=== PATIENT | female | born 1955 | race Two or more races ===

== ENCOUNTER 2023-04-18 09:49 | Outpatient (AMB) | payer MEDICARE, MEDICAID, SELFPAY ==
--- NOTE | 2023-04-18 09:54 | A.OFFVIS_ITS ---
Intake Vital Signs 04/18/23 09:57 Height 5 ft 2 in Weight 156 lb 8.451 oz BMI 28.6 BP 147/67 H Blood Pressure Location Lt brachial Position Sitting Pulse 79 Intake Visit Reasons: Cirrhosis Intake Note: Evita presents in the office as a new patient for Cirrhosis. CC: She was told that she has cirrhosis in her liver. She wants to know what is going on moving forward. Agency Development Manager Required: Yes Agency Development Manager Name: Daughter Allergies No Known Allergies Allergy (Verified 04/18/23 09:57) HPI HPI Comments History of Present Illness Details 67 y.o F with PMH of etOH use, HTN and hypothyroidism who is here to discuss GI issues as below. Accompanied by her daughter. Encounter complted with the help of filler picker. Reason for referral is a bit unclear as PCP's note mentions that she is due for colon cancer screening however pt's daughter reports she had an upper endoscopy and colonoscopy just last year from [place]. They tell me they had given a copy of the report to their PCP. Daughter also reports possible cirrhosis vs fatty liver. Daughter reports that a few years ago she had an admission to [facility] for heavy epistaxis and at that time she was told she may have cirrhosis. However when she saw her managed care specialist in [place] last year, she was told she had fatty liver without cirrhosis. However ?? she was also given Nadolol by that same provider. They are also not sure if she ever had ascites - at some point she had swollen belly and was started on lasix but that was stopped within a few weeks. Pt does have previous hx of etOH use disorder - started drinking heavily after h er in 1988. Was drinking 12 pack of beer every day x 15 years and then decreased 6 beers per day. She completely quit drinking almost 4 years ago when she had the admission to [facility]. [facility] Surgical History (Updated 04/18/23 @ 09:58 by STEFFANIE Valentin) History of esophagogastroduodenoscopy (EGD) Hx of colonoscopy Social History (Updated 04/18/23 @ 09:58 by STEFFANIE Valentin) Household Members: Family Alcohol intake: never Patient Tobacco Use Status: Never used Tobacco Review of Systems Const All systems reviewed & are unremarkable except as noted in HPI and below Physical Exam Vital Signs: Last Vital Signs Pulse 79 04/18/23 09:57 BP 147/67 H 04/18/23 09:57 BMI result Body Mass Index 28.6 Gen Appear: NAD, well nourished HEENT: No scleral icterus, no bitemporal wasting noted Chest: CTA CVS: Regular S1/S2 no murmurs Abd: soft, nontender, nondistended, no shifting dullness to percussion, bowel sounds active Ext: No peripheral edema bilaterally Neuro: A/Ox3, no asterixis Derm: No spider angioma and palmar erythema noted Assessment & Plan Assessment & Plan (1) Chronic liver disease: Code(s): K76.9 - Liver disease, unspecified (2) Personal history of colonic polyps: Code(s): Z86.010 - Personal history of colonic polyps Plan 1. Discussed with the pt and her daughter that based on physical exam, no stigmata of advanced liver disease however will need more information to determine this further. Suspect pt may have had CSPH due to ongoing etOH use at some point which has now recovered in the light of complete abstinence. - Labs ordered as below - Records release from [facility] signed - US abd ordered, however pt reports having a ?liver MRI at [facility] 2 months ago - again, will await records and cancel ultrasound if not needed. 2. Pt will bring reports from her EGD and colo later this week. Depending on the results, will review interval for next endoscopy. Orders: Orders Comprehensive Met. Panel Today K76.9 - Liver disease, unspecified Ferritin Today K76.9 - Liver disease, unspecified IRON PROFILE Today K76.9 - Liver disease, unspecified Prothrombin Time INR Today K76.9 - Liver disease, unspecified Complete Blood Count no Diff Today K76.9 - Liver disease, unspecified Hepatitis B Surface Antibody Today K76.9 - Liver disease, unspecified Hepatitis A IgG Today K76.9 - Liver disease, unspecified Hepatitis B Core Antibody Today K76.9 - Liver disease, unspecified Hepatitis B Surface Antigen Today K76.9 - Liver disease, unspecified Hepatitis C Antibody Today K76.9 - Liver disease, unspecified HIV Ab/Ag Today K76.9 - Liver disease, unspecified US abdomen complete Today K76.9 - Liver disease, unspecified Coding Level of Care Code New Pt Level 4 (31626) Diagnoses Chronic liver disease K76.9 Personal history of colonic polyps Z86.010
[2023-04-18 09:57] VITALS: BP 147/67; PULSE 79; BMI 28.6
== END 2023-04-18 10:37 | disposition home or self-care (01) ==
PROVIDERS: PCP Internal Medicine; Visit Provider Internal Medicine
DX: K76.9 Liver disease, unspecified (principal); Z86.010 Personal history of colon polyps
CPT/HCPCS: 99204

== ENCOUNTER 2023-04-18 09:49 | Outpatient (REF) | payer MEDICARE, MEDICAID, SELFPAY ==
[2023-04-18 11:56] LABS: Hematocrit 42.5 % (37.0-47.0); Mean Corpuscular HGB Conc 32.9 g/dl (31.0-35.0); Mean Corpuscular Hemoglobin 30.8 pg (27.0-33.0); Mean Corpuscular Volume 93.4 fL (80.0-98.0); Mean Platelet Volume 11.3 fL (9.4-12.3); Platelet Count 150 X10*3/uL (160-400); Red Blood Count 4.55 X10*6/uL (4.20-5.50); Red Cell Distribution Width 13.1 % (11.0-16.0); White Blood Count 6.5 X10*3/uL (4.8-10.8)
[2023-04-18 11:59] LABS: Prothrombin Time 12.7 SEC (11.1-13.3)
[2023-04-18 12:32] LABS: Alanine Aminotransferase 36 U/L (0-31); Alkaline Phosphatase 108 U/L (39-117); Anion Gap 10 (12-20); Aspartate Amino Transferase 44 U/L (5-31); Bilirubin Total 0.8 mg/dL (0.0-1.0); Blood Urea Nitrogen 8 mg/dL (9-16); Calcium 9.8 mg/dL (8.4-10.2); Carbon Dioxide 27 mmol/L (22-29); Chloride 107 mmol/L (96-108); Estimated Glomerular Filt Rate > 60; Glucose Random 94 mg/dL (60-115); Iron 105 mcg/dL (30-160); Percent Iron Saturation 32 % (15-50); Potassium 3.9 mmol/L (3.3-5.1); Sodium 140 mmol/L (135-145); Total Iron Binding Capacity 326 mcg/dL (228-428); Total Protein 8.7 g/dL (6.5-8.0); Unsaturated Iron Binding 221 ug/dL
[2023-04-18 12:40] LABS: Ferritin 193 ng/mL (10-250)
[2023-04-19 08:16] LABS: HBS Num1 0.02 mIU/mL (0-7.99); HBc Num1 0.11 S/CO (0.00-0.79); HBsAGNum1 0.34 S/CO (0.00-0.99); HIV AB/AG Nonreactive (Nonreactive); HIV Num 1 0.07 S/CO (0.00-0.99); Hepatitis B Core Antibody Nonreactive (Nonreactive); Hepatitis B Surface Antigen Negative (Negative); ~HepC Num1 0.09 S/CO (0.00-0.79); ~Hepatitis B Surface Antibody NONREACTIVE (Nonreactive); ~Hepatitis C Antibody Nonreactive (Nonreactive)
[2023-04-19 08:22] LABS: Hepatitis A Antibody IgG REACTIVE (Nonreactive); ~Hepatitis A Antibody IgG 11.34 S/CO (0.00-0.99)
== END 2023-04-18 09:50 | disposition home or self-care (01) ==
LOC: HO.LAB 09:49
PROVIDERS: PCP Family Medicine; Visit Provider Internal Medicine
DX: K76.9 Liver disease, unspecified (principal); K74.60 Unspecified cirrhosis of liver; I10 Essential (primary) hypertension; E03.9 Hypothyroidism, unspecified; Z86.010 Personal history of colon polyps
CPT/HCPCS: 36415; 80053; 82728; 83540; 85027; 85610; 86704; 86706; 86708; 86803; 87340; 87389; 99202

== ENCOUNTER 2023-05-30 09:15 | Outpatient (REF) | payer MEDICARE, MEDICAID, SELFPAY ==
[2023-05-30 18:58] LABS: Iron 70 mcg/dL (30-160); Percent Iron Saturation 24 % (15-50); Total Iron Binding Capacity 288 mcg/dL (228-428); Unsaturated Iron Binding 218 ug/dL
[2023-05-30 19:09] LABS: Ferritin 195 ng/mL (10-250)
[2023-06-01 17:58] LABS: Transglutaminase IgA <1.0 U/mL
[2023-06-01 19:03] LABS: Immunoglobulin A 503 mg/dL (70-320); Immunoglobulin G 2261 mg/dL (600-1540)
[2023-06-03 13:14] LABS: Liver Kidney Microsomal Ab <=20.0 U (<=20.0)
[2023-06-03 23:28] LABS: Smooth Muscle Antibody <20 U (<20)
== END 2023-05-30 09:16 | disposition home or self-care (01) ==
LOC: HO.LAB 09:15
PROVIDERS: PCP Internal Medicine; Visit Provider Internal Medicine
DX: R79.89 Other specified abnormal findings of blood chemistry (principal); K76.9 Liver disease, unspecified; Z86.010 Personal history of colon polyps
CPT/HCPCS: 36415; 82728; 82784; 83540; 86015; 86364; 86376; 99212

== ENCOUNTER 2023-05-30 09:15 | Outpatient (AMB) | payer MEDICARE, MEDICAID, SELFPAY ==
--- NOTE | 2023-05-30 09:20 | MHC.OFFVIS ---
Intake Vital Signs 05/30/23 09:22 Height 5 ft 2 in Weight 156 lb 8.451 oz BMI 28.6 BP 174/74 H Blood Pressure Location Lt brachial Position Sitting Pulse 77 Intake Visit Reasons: 6 Week FU results Intake Note: Evita presents in the office as a 6 week follow up. CC: She states that she is not having any concerns today Full Stack Software Developer Required: Yes Full Stack Software Developer Name: Becky [id number] Allergies No Known Allergies Allergy (Verified 05/30/23 09:21) HPI HPI Comments History of Present Illness Details 67 y.o F with PMH of etOH use, HTN and hypothyroidism who is here to discuss GI issues as below. 04/18/23: Accompanied by her daughter. Encounter complted with the help of housing liaison. Reason for referral is a bit unclear as PCP's note mentions that she is due for colon cancer screening however pt's daughter reports she had an upper endoscopy and colon[facility] just last year [facility]. They tell me they had given a copy of the report to their PCP. Daughter also reports possible cirrhosis vs fatty liver. Daughter reports that a few years ago she had an admission to [facility] for heavy epistaxis and at that time she was told she may have cirrhosis. However when she saw her correction officer head in [place] last year, she was told she had fatty liver without cirrhosis. However ?? she was also given Nadolol by that same provider. They are also not sure if she ever had ascites - at some point she had swollen belly and was started on lasix but that was stopped within a few weeks. Pt does have previous hx of etOH use disorder - started drinking heavily after her in 1988. Was drinking 12 pack of beer every day x 15 years and then decreased 6 beers per day. She completely quit drinking almost 4 years ago when she had the admission to [facility]. 05/30/23: Here with her grand-daughter Brandie today. housing liaison present for assistance. Pt has brought in her endoscopy reports which are summarised as below. Otherwise no acute gastrointestinal complaints today. EGD 08/08/22: (Dr Ector [facility]) Esophageal varices Hiatal hernia Grade II-III [facility] [place] 08/09/22: AC AVM x2 polyps cold forceps polypectomy US Abd 05/2022: Normal liver echogenicity, spleen 8.7 cm. Based on above - quite surprising to see normal liver and spleen, sabas given gross portal hypertensive changes noted on endoscopy. Secondly, unclear if pt got esophageal banding based on report available. She remains on Nadolol 40 however. Path not available and pt does not recall interval for next colo. PFSH Surgical History History of esophagogastroduodenoscopy (EGD) Hx of colonoscopy Social History Household Members: Family Alcohol intake: never Patient Tobacco Use Status: Never used Tobacco Review of Systems Const All systems reviewed & are unremarkable except as noted in HPI and below Physical Exam Vital Signs: Last Vital Signs Pulse 77 05/30/23 09:22 BP 174/74 H 05/30/23 09:22 BMI result Body Mass Index 28.6 Gen Appear: NAD, well nourished HEENT: No scleral icterus, no bitemporal wasting noted Chest: CTA CVS: Regular S1/S2 no murmurs Abd: soft, nontender, nondistended, no shifting dullness to percussion, bowel sounds active Ext: No peripheral edema bilaterally Neuro: A/Ox3, no asterixis Derm: No spider angioma and palmar erythema noted Assessment & Plan Assessment & Plan (1) Chronic liver disease: Code(s): K76.9 - Liver disease, unspecified (2) Personal history of colonic polyps: Code(s): Z86.010 - Personal history of colonic polyps Plan 1. Reviewed with the pt that based on EGD note it is unclear if pt ever had banding done for high risk varices, in which case will be prudent to have a repeat EGD for evaluation. This will be set up today. There also seems to be discordance in sonographic appearance of liver and her clinical features. We will repeat an US followed by MRI if needed. Labs reviewed and total protein noted to be elevated. Will check serology for AIH. - Labs ordered as below - US Abd pending - EGD +/- banding to be scheduled - Not immune to HBV, Heplisav sent to pharmacy to be administered by the pharmacist 2. Polyps: Path not available - pt recalls being told they were benign polyps. Assuming diminutive adenomas, will give her 7 year interval. Follow up after EGD Orders: Orders Liver Kidney Microsomal Ab Today R79. - Other specified abnormal findings of blood chemistry Smooth Muscle Antibody Today R79.89 - Other specified abnormal findings of blood chemistry Immunoglobulin G Today R7. - Other specified abnormal findings of blood chemistry Ferritin Today R7. - Other specified abnormal findings of blood chemistry IRON PROFILE Today R7. - Other specified abnormal findings of blood chemistry Transglutaminase IgA Today R79. - Other specified abnormal findings of blood chemistry Immunoglobulin A Today R79. - Other specified abnormal findings of blood chemistry Medications: New hepatitis B vacc-CpG 1018 (PF) 20 mcg/0.5 mL (Heplisav-B (PF)) 20 mcg (0.5 mL) IM Q30D 2 doses 0.5 mL 1RF Coding Level of Care Code Est Pt Level 4 (02133) Diagnoses Chronic liver disease K76.9 Personal history of colonic polyps Z86.010
[2023-05-30 09:22] VITALS: BP 174/74; PULSE 77; BMI 28.6
== END 2023-05-30 10:25 | disposition home or self-care (01) ==
PROVIDERS: PCP Internal Medicine; Visit Provider Internal Medicine
DX: K76.9 Liver disease, unspecified (principal); Z86.010 Personal history of colon polyps
CPT/HCPCS: 99214

== ENCOUNTER 2023-06-26 09:58 | Day surgery (SDC) | payer MEDICARE, MEDICAID, SELFPAY ==
[2023-06-22 07:41] VITALS: BMI 27.3
--- NOTE | 2023-06-25 10:24 | HO.ANESPROP2 ---
Documented by User: Rachel Flores NP 06/25/23 10:30 HPI - Anesthesia Eval Consult details Narrative: 67yo F for Upper Endoscopy PMFSH Active Problems Active Problems: All Active Problems (Updated 06/22/23 @ 07:45 by Ryann Arambula RN) Elevated LFTs (Acute) Personal history of colonic polyps (Acute) Chronic liver disease (Acute) Past Medical History Medical History (Updated 06/22/23 @ 07:45 by Ryann Arambula RN) Hyperlipemia HTN (hypertension) Surgical History Surgical History History of esophagogastroduodenoscopy (EGD) Hx of colonoscopy Social History Social History Household Members: Family Alcohol intake: never Patient Tobacco Use Status: Never used Tobacco Are you DNR?: No Advance Directives: No Advance Directives Information Provided: Yes Nutrition Risks: No Nutritional Risk Meds Allergies Allergy/AdvReac Type Severity Reaction Status Date / Time No Known Allergies Allergy Verified 06/26/23 12:08 Home Medications Medication Instructions Recorded Confirmed Last Taken Type blood pressure test kit-large #1 ea 04/18/23 Unknown History famotidine 40 mg tablet 40 mg PO BEDTIME PRN heartburn 04/18/23 Unknown History furosemide 20 mg tablet 20 mg PO QAM 04/18/23 Unknown History levothyroxine 25 mcg tablet 75 mcg PO QAM 04/18/23 06/26/23 06/26/23 History levothyroxine 50 mcg tablet 50 mcg PO QAM 04/18/23 06/26/23 06/26/23 History losartan 50 mg tablet 50 mg PO QAM 04/18/23 06/26/23 06/26/23 History nadolol 40 mg tablet 40 mg PO QAM 04/18/23 06/26/23 06/26/23 History albuterol sulfate 90 mcg/actuation 2 puff inhalation Q4H PRN wheezing 05/30/23 Unknown History aerosol inhaler pantoprazole 40 mg tablet,delayed 40 mg PO DAILY 05/30/23 06/26/23 06/26/23 History release Exam Exam Date and Time: June 25, 2023 1024 Height,Weight and Vital Signs: Height 5 ft 3 in Weight 69.853 kg Pertinent Lab Results Pertinent Lab Results: Laboratory Tests 04/18/23 10:55 WBC 6.5 Hgb 14.0 Hct 42.5 Plt Count 150 L Sodium 140 Potassium 3.9 Chloride 107 Carbon Dioxide 27 BUN 8 L Creatinine 0.81 Assessment and Plan Assessment Anesthesia Assessment: Chart Reviewed Documented by User: Richie Astudillo MD 06/26/23 12:16 [facility] Past Medical History Medical History (Updated 06/22/23 @ 07:45 by Ryann Arambula RN) Hyperlipemia HTN (hypertension) Family History Family history of problems with anesthesia: No Surgical History Surgical History History of esophagogastroduodenoscopy (EGD) Hx of colonoscopy History of Problems with Anesthesia: No Social History Social History Household Members: Family Alcohol intake: never Patient Tobacco Use Status: Never used Tobacco Are you DNR?: No Advance Directives: No Advance Directives Information Provided: Yes Nutrition Risks: No Nutritional Risk Meds Allergies Allergy/AdvReac Type Severity Reaction Status Date / Time No Known Allergies Allergy Verified 06/26/23 12:08 Home Medications Medication Instructions Recorded Confirmed Last Taken Type blood pressure test kit-large #1 ea 04/18/23 Unknown History famotidine 40 mg tablet 40 mg PO BEDTIME PRN heartburn 04/18/23 Unknown History furosemide 20 mg tablet 20 mg PO QAM 04/18/23 Unknown History levothyroxine 25 mcg tablet 75 mcg PO QAM 04/18/23 06/26/23 06/26/23 History levothyroxine 50 mcg tablet 50 mcg PO QAM 04/18/23 06/26/23 06/26/23 History losartan 50 mg tablet 50 mg PO QAM 04/18/23 06/26/23 06/26/23 History nadolol 40 mg tablet 40 mg PO QAM 0706/26/23 06/26/23 History albuterol sulfate 90 mcg/actuation 2 puff inhalation Q4H PRN wheezing 05/30/23 Unknown History aerosol inhaler pantoprazole 40 mg tablet,delayed 40 mg PO DAILY 05/30/23 06/26/23 06/26/23 History release Exam Airway Mallampati Class: II TM Dist: <=3cm Neck ROM: Full Loose/Missing/Broken Teeth: No Heart: ok Lungs: ok Assessment and Plan Assessment Anesthesia Assessment: Anesthesia Plan Discussed Final Anesthetic Review Family History of Problems with Anesthesia: No History of Problems with Anesthesia: No NPO: Yes ASA Class: III Final Preanesthetic Review: No Changes in Pt Med Stat, Meds/Allgs Chart Reviewed, Consent Obtained/Reviewed and Anes Risks/Benef Reviewed Patient Risk: Intermediate Procedure Risk: Intermediate Anesthetic Plan Anesthetic Plan: MAC: and Agree w/ Assess. and Plan Disposition: Standard PACU
[2023-06-26] MEDS: Lactated Ringers 1,000 ML 100 ML IVCONT (11:44)
[2023-06-26 11:45] VITALS: BP 159/55; PULSE 59; RESP 18; TEMP 36.7; O2SAT 97
--- NOTE | 2023-06-26 11:48 | MHC.SHP ---
Pre-Procedural Eval Section A Date of Service: 06/26/23 The History & Physical has been completed within 30 days and I have reviewed it.: Yes Section B Chief Complaint: Esophageal varices without bleeding Allergies: Allergies Allergy/AdvReac Type Severity Reaction Status Date / Time No Known Allergies Allergy Verified 05/30/23 09:21 Plan Diagnosis/Plan: Unchanged I have reviewed the history and physical and performed a pertinent physical examination on my patient. No changes have occurred unless specified. Time Spent With Patient Time: Total time managing care of this patient today ____ minutes.
--- NOTE | 2023-06-26 12:27 | P.OP_ITS ---
Operative Note Operative Note Date of Service: 06/26/23 Narrative: Procedure: Esophagogastroduodenoscopy Endoscopist: Stephanie Motta MD Indication: Cirrhosis, variceal screening Anesthesia Provider: Dr Richie Astudillo Anesthesia Type: MAC ?? EGD Procedure:?? The procedure, indications, preparation and potential complications were reviewed with the patient, who indicated understanding and gave written informed consent to proceed with the help of a diplomatic interpreter/translator. A physical exam was performed. The endoscope was introduced through the mouth, and advanced to the second part of duodenum. The mucosa was carefully examined on slow withdrawal of the endoscope. The patient tolerated the procedure well. There were no immediate complications.? ? EGD Findings:? * Esophagus:? Mild narrowing was noted at the level of cricopharyngeus. The Z line was at 38 cm. Large varices occupying > 50% of the lumen were noted up to 25 cm with red justo signs. * Stomach:?A small varix was noted at the fundus along the lesser curvature. Diffuse congestion and erythema in mosaic pattern consistent with portal hyper tensive gastropathy was noted in the whole stomach. Retroflexion in the cardia showed a small hiatal hernia. * Duodenum:? Normal mucosa was noted in the whole of the examined duodenum. Additional intervention: The gastroscope was removed and a [employer] multishooter was attached in the usual fashion. 4 bands were deployed starting at 38 cm to 31 cm in a spiral fashion with complete decompression of varices at the completion of banding. EGD Impressions:? * Esophageal varices with high risk stigmata (EVBL x4) * GOV-1 * Portal hypertensive gastropathy * Hiatal hernia * Normal duodenum ?? Recommendations:?? * Clear liquids today. * Increase pantoprazole 40 to twice a day x 2 weeks * Add sucralfate liquid 1g QID x 2 weeks * Switch Nadolol to carvedilol 3.125 BID and increase in a week as tolerated by BP and HR * Avoid NSAIDs. * Repeat EGD in a year Above has been reviewed with the patient.
--- NOTE | 2023-06-26 12:27 | W.PM.OPN ---
Operative Note Operative Note Date of Service: 06/26/23 Narrative: Procedure: Esophagogastroduodenoscopy Endoscopist: Stephanie Motta MD Indication: Cirrhosis, variceal screening Anesthesia Provider: Dr Richie Astudillo Anesthesia Type: MAC ?? EGD Procedure:?? The procedure, indications, preparation and potential complications were reviewed with the patient, who indicated understanding and gave written informed consent to proceed with the help of a paraprofessional interpreter. A physical exam was performed. The endoscope was introduced through the mouth, and advanced to the second part of duodenum. The mucosa was carefully examined on slow withdrawal of the endoscope. The patient tolerated the procedure well. There were no immediate complications.? ? EGD Findings:? Esophagus:? Mild narrowing was noted at the level of cricopharyngeus. The Z line was at 38 cm. Large varices occupying > 50% of the lumen were noted up to 25 cm with red justo signs. Stomach:?A small varix was noted at the fundus along the lesser curvature. Diffuse congestion and erythema in mosaic pattern consistent with portal hypertensive gastropathy was noted in the whole stomach. Retroflexion in the cardia showed a small hiatal hernia. Duodenum:? Normal mucosa was noted in the whole of the examined duodenum. Additional intervention: The gastroscope was removed and a [employer] multishooter was attached in the usual fashion. 4 bands were deployed starting at 38 cm to 31 cm in a spiral fashion with complete decompression of varices at the completion of banding. EGD Impressions:? Esophageal varices with high risk stigmata (EVBL x4) GOV-1 Portal hypertensive gastropathy Hiatal hernia Normal duodenum ?? Recommendations:?? Clear liquids today. Increase pantoprazole 40 to twice a day x 2 weeks Add sucralfate liquid 1g QID x 2 weeks Switch Nadolol to carvedilol 3.125 BID and increase in a week as tolerated by BP and HR Avoid NSAIDs. Repeat EGD in a year Above has been reviewed with the patient.
--- NOTE | 2023-06-26 12:45 | PC.NURSE ---
2 attempts for IV by author. one by alice anton and insertion by dr. daley
[2023-06-26 12:58] VITALS: BP 175/93; PULSE 69; RESP 14; TEMP 36.3; O2SAT 98
[2023-06-26 13:21] VITALS: BP 178/75; PULSE 60; RESP 18; TEMP 36.1; O2SAT 98
== END 2023-06-26 14:10 | disposition home or self-care (01) ==
PROVIDERS: PCP Internal Medicine; Visit Provider Internal Medicine
PROC: 0DJ08ZZ Inspection of Upper Intestinal Tract, Via Natural or Artificial Opening Endoscopic (ICD-10-PCS; CPT 43235; principal; 2023-06-26 12:00)
DX: I85.00 Esophageal varices without bleeding (principal); K74.60 Unspecified cirrhosis of liver; K76.6 Portal hypertension; K31.89 Other diseases of stomach and duodenum; K44.9 Diaphragmatic hernia without obstruction or gangrene; I10 Essential (primary) hypertension; E03.9 Hypothyroidism, unspecified; F10.90 Alcohol use, unspecified, uncomplicated; Z79.899 Other long term (current) drug therapy
CPT/HCPCS: 43244; J3010

== ENCOUNTER → 2023-06-26 09:58 | Outpatient (BNV) | payer MEDICARE, MEDICAID, SELFPAY | PROVIDERS: PCP Internal Medicine; Visit Provider Internal Medicine | DX: I85.00 Esophageal varices without bleeding (principal) | CPT/HCPCS: 43244 ==

== ENCOUNTER 2023-07-10 11:07 | Outpatient (AMB) | payer MEDICARE, MEDICAID, SELFPAY ==
--- NOTE | 2023-07-10 11:11 | A.OFFVIS_ITS ---
Intake Vital Signs 07/10/23 11:13 Height 5 ft 3 in Weight 156 lb 8.451 oz BMI 27.7 BP 165/74 H Blood Pressure Location Lt brachial Position Sitting Pulse 78 Pulse Source Pulse Oximeter Pulse Oximetry (%) 97 Oxygen Delivery Method Room Air Intake Visit Reasons: s/P EGD; Dr. Motta Intake Note: Evita presents in the office as a follow up EGD. CC: She states that she is having some soreness in her chest - not like acid but like it is her esophagus from the dilation. She states that it is a pressure or discomfort. She states that it is going away little by little but it was scary at first. Charger Required: Yes Charger Name: [id number] Faviola Allergies No Known Allergies Allergy (Verified 07/10/23 11:14) HPI HPI Comments History of Present Illness Details 67 y.o F with PMH of etOH use, HTN and h ypothyroidism who is here to discuss GI issues as below. 04/18/23: Accompanied by her daughter. Encounter complted with the help of freelance interpreter/translator. Reason for referral is a bit unclear as PCP's note mentions that she is due for colon cancer screening however pt's daughter reports she had an upper endoscopy and colonoscopy just last year from [place]. They tell me they had given a copy of the report to their PCP. Daughter also reports possible cirrhosis vs fatty liver. Daughter reports that a few years ago she had an admission to [facility] for heavy epistaxis and at that time she was told she may have cirrhosis. However when she saw her hardwood floor installer in [place] last year, she was told she had fatty liver without cirrhosis. However ?? she was also given Nadolol by that same provider. They are also not sure if she ever had ascites - at some point she had swollen belly and was started on lasix but that was stopped within a few weeks. Pt does have previous hx of etOH use disorder - started drinking heavily after her in 1988. Was drinking 12 pack of beer every day x 15 years and then decreased 6 beers per day. She completely quit drinking almost 4 years ago when she had the admission to [facility]. 05/30/23: Here with her grand-daughter Brandie today. freelance interpreter/translator present for assistance. Pt has brought in her endoscopy reports which are summarised as below. Otherwise no acute gastrointestinal complaints today. EGD 08/08/22: (Dr Ector Hedrick [place]) Esophageal varices Hiatal hernia Grade II-III PHG [place] 08/09/22: AC AVM x2 polyps cold forceps polypectomy US Abd 05/2022: Normal liver echogenicity, spleen 8.7 cm. Based on above - quite surprising to see normal liver and spleen, sabas given gross portal hypertensive changes noted on endoscopy. Secondly, unclear if pt got esophageal banding based on report available. She remains on Nadolol 40 however. Path not available and pt does not recall interval for next colo. 06/26/23: * Esophageal varices with high risk stigmata (EVBL x4) * GOV-1 * Portal hypertensive gastropathy * Hiatal hernia * Normal duodenum 07/10/23: Pt here by herself. Seen with an in person healthcare interpreter after multiple attempts to use the online healthcare interpreter. Reviewed findings on EGD including CSPH with large varices despite Nadolol. Pt reports compliance to carvedilol BID. Did not take carvedilol this AM so suspect BP and HR a bit higher than it typically is. Also missed her US Abd appt last week due to lack of transport. Daughter was out of state due to a conference. Has not been able to take heplisav vaccine either for this reason. [facility] Medical History Hyperlipemia HTN (hypertension) Surgical History History of esophagogastroduodenoscopy (EGD) Hx of colonoscopy Social History Household Members: Family Alcohol intake: never Patient Tobacco Use Status: Never used Tobacco Review of Systems Const All systems reviewed & are unremarkable except as noted in HPI and below Physical Exam Vital Signs: Last Vital Signs Pulse 78 07/10/23 11:13 BP 165/74 H 07/10/23 11:13 Pulse Ox 97 07/10/23 11:13 Oxygen Delivery Method Room Air 07/10/23 11:13 BMI result Body Mass Index 27.7 Gen Appear: NAD, well nourished HEENT: No scleral icterus, no bitemporal wasting noted Chest: CTA CVS: Regular S1/S2 no murmurs Abd: soft, nontender, nondistended, no shifting dullness to percussion, bowel sounds active Ext: No peripheral edema bilaterally Neuro: A/Ox3, no asterixis Derm: No spider angioma and palmar erythema noted Assessment & Plan Assessment & Plan (1) Chronic liver disease: Code(s): K76.9 - Liver disease, unspecified (2) Personal history of colonic polyps: Code(s): Z86.010 - Personal history of colonic polyps Plan Compensated etOH and MAFLD related cirrhosis -- MELD-Na 6 -- CSPH with nonbleeding varices (EVBL 06/2023, on coreg) Reviewed to cont coreg BID and to call office in 7-10 days with HR and BP readings to adjust further as tolerated. She will also need a repeat EGD for continued surveillance of varices, unless has better control of metabolic risk factors and weight loss of 10% TBW in 6 months in which case can consider repeat EGD in 2 years. Cont to be overdue for US Abd. Again reminded to get this done at the soonest for HCC screening. - Carvedilol 3.125 BID - Pt to call office in 7-10 days with HR and BP log for further adjustment of BB - US Abd still pending - Repeat EGD due in 06/2024 - Reminded that Heplisav Rx already at the pharmacy - Pt was also given a handout with all these instructions - Low MELD and compensated cirrhosis, no indication for referral for transplant eval at this time 2. Polyps: Path not available - pt recalls being told they were benign polyps. Assuming diminutive adenomas, will give her 7 year interval i.e due in 2028. Follow up in 4 months Patient Instructions: 1. Please make sure you continue Carvedilol 3.125 twice a day. 2. Pls call Radiology and make appt for ultrasound of the liver sharif [phone]. You can contact your PCP to see if PT-1 transport can be set up for you. 3. Hepatitis B vaccine has been sent to pharmacy 4. Pls check your blood pressure every day in the morning for one week and call us with the readings [phone] Coding Level of Care Code Est Pt Level 5 (26288) Diagnoses Chronic liver disease K76.9 Personal history of colonic polyps Z86.010
[2023-07-10 11:13] VITALS: BP 165/74; PULSE 78; O2SAT 97; BMI 27.7
== END 2023-07-10 12:12 | disposition home or self-care (01) ==
PROVIDERS: PCP Family Medicine; Visit Provider Internal Medicine
DX: K76.9 Liver disease, unspecified (principal); Z86.010 Personal history of colon polyps
CPT/HCPCS: 99214

== ENCOUNTER → 2023-07-10 11:07 | Outpatient (BNVA) | payer MEDICARE, MEDICAID, SELFPAY | PROVIDERS: PCP Family Medicine; Visit Provider Internal Medicine | DX: K76.9 Liver disease, unspecified (principal); Z86.010 Personal history of colon polyps | CPT/HCPCS: 99212 ==

== ENCOUNTER 2023-07-27 07:56 | Outpatient (REF) | payer MEDICARE, MEDICAID, SELFPAY ==
--- NOTE | ~2023-07-27 | US_ITS ---
EXAMINATION: US ABDOMEN COMPLETE CLINICAL INFORMATION: Liver disease, unspecified. COMPARISON: None available. TECHNIQUE: Real-time imaging of the abdominal viscera. FINDINGS: PANCREAS: Not well visualized due to bowel gas ABDOMINAL AORTA: The proximal, mid, and distal segments are normal in caliber. INFERIOR VENA CAVA: Visualized portions are normal. LIVER: Liver echotexture echotexture is slightly heterogeneous. The contour of the liver slightly lobular questionable for mild cirrhotic change. No focal hepatic lesion. There is no intrahepatic biliary duct dilatation seen. GALLBLADDER: Normal. The gallbladder is physiologically distended without evidence of stones, sludge, polyps, wall thickening or pericholecystic fluid. COMMON BILE DUCT: Normal in caliber measuring 0.35 cm in diameter. RIGHT KIDNEY: Normal. No hydronephrosis. No renal calculi or focal parenchymal lesions. The kidney measures 10.4 cm in maximum dimension. LEFT KIDNEY: Normal. No hydronephrosis. No renal calculi or focal parenchymal lesions. The kidney measures 9.8 cm in maximum dimension. SPLEEN: Normal. The spleen measures 10.0 cm in maximum dimension. FREE FLUID: None. US/US abdomen complete IMPRESSION: Heterogeneous liver echotexture and question mild cirrhotic changes of the liver. Limited visualization of the pancreas.
== END 2023-07-27 07:57 | disposition home or self-care (01) ==
LOC: HO.US 07:56
PROVIDERS: PCP Family Medicine; Visit Provider Internal Medicine
DX: K76.9 Liver disease, unspecified (principal)
CPT/HCPCS: 76700

== ENCOUNTER 2023-12-12 09:18 | Outpatient (REF) | payer MEDICARE, MEDICAID, SELFPAY ==
[2023-12-12 10:31] LABS: Mean Corpuscular HGB Conc 34.1 g/dl (31.0-35.0); Mean Corpuscular Hemoglobin 31.2 pg (27.0-33.0); Mean Corpuscular Volume 91.3 fL (80.0-98.0); Mean Platelet Volume 11.2 fL (9.4-12.3); Platelet Count 145 X10*3/uL (160-400); Red Blood Count 4.49 X10*6/uL (4.20-5.50); Red Cell Distribution Width 12.8 % (11.0-16.0); White Blood Count 5.7 X10*3/uL (4.8-10.8)
[2023-12-12 10:36] LABS: INTERNATIONAL NORM RATIO 1.1 (0.9-1.1); Prothrombin Time 12.9 SEC (11.1-13.3)
[2023-12-12 10:51] LABS: Estimated Average Glucose 111 mg/dL; Hemoglobin A1c % 5.5 % (<6.0)
[2023-12-12 10:58] LABS: Alanine Aminotransferase 39 U/L (0-31); Albumin Level 3.7 g/dL (3.5-5.0); Alkaline Phosphatase 119 U/L (39-117); Anion Gap 7 (12-20); Aspartate Amino Transferase 40 U/L (5-31); Bilirubin Total 0.6 mg/dL (0.0-1.0); Blood Urea Nitrogen 8 mg/dL (9-16); Calcium 9.5 mg/dL (8.4-10.2); Carbon Dioxide 27 mmol/L (22-29); Chloride 108 mmol/L (96-108); Cholesterol 201 mg/dL (<200); Estimated Glomerular Filt Rate > 60; Glucose Random 150 mg/dL (60-115); HDL Cholesterol 56 mg/dL (>40); LDL Cholesterol Calculated 123 mg/dL (<100); Sodium 138 mmol/L (135-145); Total Protein 8.2 g/dL (6.5-8.0); Triglycerides 110 mg/dL (<150)
== END 2023-12-12 09:19 | disposition home or self-care (01) ==
LOC: HO.LAB 09:18
PROVIDERS: PCP Family Medicine; Visit Provider Internal Medicine
DX: K76.9 Liver disease, unspecified (principal); R79.89 Other specified abnormal findings of blood chemistry; Z86.010 Personal history of colon polyps
CPT/HCPCS: 36415; 80053; 80061; 83036; 85027; 85610; 99212

== ENCOUNTER 2023-12-12 09:18 | Outpatient (AMB) | payer MEDICARE, MEDICAID, SELFPAY ==
--- NOTE | 2023-12-12 09:20 | A.OFFVIS_ITS ---
Intake Vital Signs 12/12/23 09:23 Height 5 ft 3 in Weight 160 lb 14.999 oz BMI 28.5 BP 187/73 H Blood Pressure Location Lt brachial Position Sitting Pulse 69 Intake Visit Reasons: 3 month f/u liver disease Intake Note: Evita presents in the office as a 3 month follow up for liver disease. CC: She has no concerns today. Textile Knitter Required: Yes Allergies No Known Allergies Allergy (Verified 12/12/23 09:23) HPI HPI Comments History of Present Illness Details 67 y.o F with PMH of etOH use, HTN and h ypothyroidism who is here to discuss GI issues as below. 04/18/23: Accompanied by her daughter. Encounter complted with the help of certified court/medical interpreter. Reason for referral is a bit unclear as PCP's note mentions that she is due for colon cancer screening however pt's daughter reports she had an upper endoscopy and colonoscopy just last year from [place]. They tell me they had given a copy of the report to their PCP. Daughter also reports possible cirrhosis vs fatty liver. Daughter reports that a few years ago she had an admission to [facility] for heavy epistaxis and at that time she was told she may have cirrhosis. However when she saw her detailer pharmaceuticals in [place] last year, she was told she had fatty liver without cirrhosis. However ?? she was also given Nadolol by that same provider. They are also not sure if she ever had ascites - at some point she had swollen belly and was started on lasix but that was stopped within a few weeks. Pt does have previous hx of etOH use disorder - started drinking heavily after her in 1988. Was drinking 12 pack of beer every day x 15 years and then decreased 6 beers per day. She completely quit drinking almost 4 years ago when she had the admission to [facility]. 05/30/23: Here with her grand-daughter Brandie today. certified court/medical interpreter present for assistance. Pt has brought in her endoscopy reports which are summarised as below. Otherwise no acute gastrointestinal complaints today. EGD 08/08/22: (Dr Ector Hedrick [place]) Esophageal varices Hiatal hernia Grade II-III PHG [place] 08/09/22: AC AVM x2 polyps cold forceps polypectomy US Abd 05/2022: Normal liver echogenicity, spleen 8.7 cm. Based on above - quite surprising to see normal liver and spleen, sabas given gross portal hypertensive changes noted on endoscopy. Secondly, unclear if pt got esophageal banding based on report available. She remains on Nadolol 40 however. Path not available and pt does not recall interval for next colo. 06/26/23: * Esophageal varices with high risk stigmata (EVBL x4) * GOV-1 * Portal hypertensive gastropathy * Hiatal hernia * Normal duodenum 07/10/23: Pt here by herself. Seen with an in person interpreter translator after multiple attempts to use the online interpreter translator. Reviewed findings on EGD including CSPH with large varices despite Nadolol. Pt reports compliance to carvedilol BID. Did not take carvedilol this AM so suspect BP and HR a bit higher than it typically is. Also missed her US Abd appt last week due to lack of transport. Daughter was out of state due to a conference. Has not been able to take heplisav vaccine either for this reason. 12/12/23: Here with her daughter. Does not report any GI sx to include abd pain, N,V, D. No abd distention, shortness of breath. US liver reviewed. Still not vacccinated for HBV. Will resend Heplisav. Coreg was increased to 12.5 BID - now HR 60-80, BP still high above 140 most of the days. Daughter worried about pt's mood however pt reluctant to seek out further assessment or referral to therapy. Also reviewed diet which is carb heavy at this time. [facility] Medical History Hyperlipemia HTN (hypertension) Surgical History History of esophagogastroduodenoscopy (EGD) Hx of colonoscopy Social History Household Members: Family Alcohol intake: never Patient Tobacco Use Status: Never used Tobacco Review of Systems Const All systems reviewed & are unremarkable except as noted in HPI and below Physical Exam Vital Signs: Last Vital Signs Pulse 69 12/12/23 09:23 BP 187/73 H 12/12/23 09:23 BMI result Body Mass Index 28.5 NAD Nonicteric Abd soft, nontender No peripheral edema No asterixis Assessment & Plan Assessment & Plan (1) Chronic liver disease: Code(s): K76.9 - Liver disease, unspecified (2) Personal history of colonic polyps: Code(s): Z86.010 - Personal history of colonic polyps Plan Compensated etOH and MAFLD related cirrhosis -- MELD-Na 6 -- CSPH with nonbleeding varices (EVBL 06/2023, on coreg) Cont coreg 12.5 BID for variceal prophylaxis. Pt advised to discuss antihypertensive tx with PCP for further control of BP. EGD to be booked this fall. Msg sent. Due for HCC screening in January. Educated on dietary recommendations for pt with cirrhosis sabas good proteins and adding a night time snack. - Check updated MELD labs - Screen for DM and HLD - Carvedilol 12.5 BID - US Abd due in January 2024 - Repeat EGD due in 06/2024 - Heplisav Rx resent. Pt to call us if not covered. - Pt was also given a handout for diet recommendations for pt wiht cirrhosis - Low MELD and compensated cirrhosis, no indication for referral for transplant eval at this time 2. Polyps: Path not available - pt recalls being told they were benign polyps. Assuming diminutive adenomas, will give her 7 year interval i.e due in 2028. Follow up in 6months Orders: Orders Comprehensive Met. Panel Today K76.9 - Liver disease, unspecified Prothrombin Time INR Today K76.9 - Liver disease, unspecified Hemoglobin A1c Today R79.89 - Other specified abnormal findings of blood chemistry US abdomen complete 2 Months K76.9 - Liver disease, unspecified Complete Blood Count no Diff Today K76.9 - Liver disease, unspecified Lipid Panel Today R79.89 - Other specified abnormal findings of blood chemistry Medications: Refilled hepatitis B vacc-CpG 1018 (PF) 20 mcg/0.5 mL (Heplisav-B (PF)) 20 mcg (0.5 mL) IM Q30D 0.5 mL 1RF 2 doses Coding Level of Care Code Est Pt Level 4 (29382) Diagnoses Chronic liver disease K76.9 Personal history of colonic polyps Z86.010
[2023-12-12 09:23] VITALS: BP 187/73; PULSE 69; BMI 28.5
== END 2023-12-12 09:53 | disposition home or self-care (01) ==
PROVIDERS: PCP Family Medicine; Visit Provider Internal Medicine
DX: K76.9 Liver disease, unspecified (principal); Z86.010 Personal history of colon polyps
CPT/HCPCS: 99214

== ENCOUNTER 2024-02-04 08:02 | Outpatient (REF) | payer MEDICARE, MEDICAID, SELFPAY ==
--- NOTE | ~2024-02-04 | US_ITS ---
EXAMINATION: US ABDOMEN COMPLETE CLINICAL INFORMATION: Liver disease, unspecified. COMPARISON: Ultrasound abdomen complete 07/27/2023. TECHNIQUE: Real-time imaging of the abdominal viscera. FINDINGS: PANCREAS: The head and body appear normal. The tail is obscured by bowel gas. ABDOMINAL AORTA: The proximal, mid, and distal segments are normal in caliber. INFERIOR VENA CAVA: Visualized portions are normal. LIVER: The liver is normal in size. Coarse liver echotexture and nodular contour consistent with cirrhosis. Nonspecific 5 mm echogenic lesion in the right hepatic lobe. This is new/newly apparent when compared to prior. There is no intrahepatic biliary duct dilatation seen. GALLBLADDER: Normal. The gallbladder is physiologically distended without evidence of stones, sludge, polyps, wall thickening or pericholecystic fluid. COMMON BILE DUCT: Normal in caliber measuring 0.3 cm in diameter. RIGHT KIDNEY: Normal. No hydronephrosis. No renal calculi or focal parenchymal lesions. The kidney measures 11.3 cm in maximum dimension. LEFT KIDNEY: Normal. No hydronephrosis. No renal calculi or focal parenchymal lesions. The kidney measures 10.0 cm in maximum dimension. SPLEEN: Normal. The spleen measures 10.0 cm in maximum dimension. FREE FLUID: None. US/US abdomen complete IMPRESSION: Cirrhosis. New/newly apparent 5 mm echogenic lesion in the right hepatic lobe. This is a nonspecific finding and is likely too small to be well evaluated with MRI at this time. This lesion could represent a benign hemangioma. However, given the underlying cirrhosis, the possibility of a dysplastic nodule or hepatocellular carcinoma is in the differential diagnosis. Recommend follow-up ultrasound in 6 and 12 months to monitor for potential growth. If the lesion grows, MRI of the abdomen without and with contrast will likely be needed to characterize this lesion and guide subsequent management.
== END 2024-02-04 08:03 | disposition home or self-care (01) ==
LOC: HO.US 08:02
PROVIDERS: PCP Family Medicine; Visit Provider Internal Medicine
DX: K76.9 Liver disease, unspecified (principal)
CPT/HCPCS: 76700

== ENCOUNTER 2024-06-11 09:23 | Outpatient (REF) | payer MEDICARE, MEDICAID, SELFPAY ==
[2024-06-11 11:09] LABS: Hematocrit 41.3 % (37.0-47.0); Hemoglobin 13.8 g/dl (12.0-16.0); Mean Corpuscular HGB Conc 33.4 g/dl (31.0-35.0); Mean Corpuscular Hemoglobin 30.9 pg (27.0-33.0); Mean Corpuscular Volume 92.6 fL (80.0-98.0); Mean Platelet Volume 11.4 fL (9.4-12.3); Platelet Count 151 X10*3/uL (160-400); Red Blood Count 4.46 X10*6/uL (4.20-5.50); Red Cell Distribution Width 12.9 % (11.0-16.0); White Blood Count 9.4 X10*3/uL (4.8-10.8)
[2024-06-11 11:24] LABS: Influenza A PCR NEGATIVE (Negative); Influenza B PCR NEGATIVE (Negative); Resp Syncy Virus RNA Qual PCR NEGATIVE (Negative); SARS COV2 PCR INHOUSE NEGATIVE (Negative)
[2024-06-11 11:55] LABS: Alanine Aminotransferase 37 U/L (0-31); Albumin Level 3.8 g/dL (3.5-5.0); Alkaline Phosphatase 112 U/L (39-117); Anion Gap 10 (12-20); Aspartate Amino Transferase 37 U/L (5-31); Bilirubin Direct 0.4 mg/dL (0.0-0.5); Bilirubin Total 0.9 mg/dL (0.0-1.0); Blood Urea Nitrogen 8 mg/dL (9-16); Calcium 9.9 mg/dL (8.4-10.2); Carbon Dioxide 29 mmol/L (22-29); Chloride 105 mmol/L (96-108); Estimated Glomerular Filt Rate > 60; Glucose Random 99 mg/dL (60-115); Potassium 4.3 mmol/L (3.3-5.1); Sodium 140 mmol/L (135-145); Total Protein 8.5 g/dL (6.5-8.0)
== END 2024-06-11 09:24 | disposition home or self-care (01) ==
LOC: HO.LAB 09:23
PROVIDERS: PCP Family Medicine; Visit Provider Internal Medicine
DX: K76.9 Liver disease, unspecified (principal); R09.89 Other specified symptoms and signs involving the circulatory and respiratory systems; I10 Essential (primary) hypertension; E03.9 Hypothyroidism, unspecified; F10.21 Alcohol dependence, in remission
CPT/HCPCS: 0241U; 80053; 82248; 85027; 99212

== ENCOUNTER 2024-06-11 09:23 | Outpatient (AMB) | payer MEDICARE, MEDICAID, SELFPAY ==
--- NOTE | 2024-06-11 09:28 | MHC.OFFVIS ---
Vital Signs 06/11/24 09:31 Height 5 ft 3 in Weight 165 lb 5.547 oz BMI 29.3 BP 141/61 H Blood Pressure Location Rt brachial Position Sitting Pulse 69 Intake Visit Reasons: Cirrhosis 6 months Intake Note: Evita presents in the office as a follow up for Cirrhosis. CC: She states that she is feeling at the moment like she is having asthma. Senior Systems Developer Required: Yes Senior Systems Developer Name: Daughter Allergies No Known Allergies Allergy (Verified 06/11/24 09:33) HPI Comments Details: 67 y.o F with PMH of etOH use, HTN and hypothyroidism who is here to discuss GI issues as below. 04/18/23: Accompanied by her daughter. Encounter complted with the help of business banking relationship manager. Reason for referral is a bit unclear as PCP's note mentions that she is due for colon cancer screening however pt's daughter reports she had an upper endoscopy and colonoscopy just last year from [place]. They tell me they had given a copy of the report to their PCP. Daughter also reports possible cirrhosis vs fatty liver. Daughter reports that a few years ago she had an admission to [facility] for heavy epistaxis and at that time she was told she may have cirrhosis. However when she saw her batchmaker in [place] last year, she was told she had fatty liver without cirrhosis. However ?? she was also given Nadolol by that same provider. They are also not sure if she ever had ascites - at some point she had swollen belly and was started on lasix but that was stopped within a few weeks. Pt does have previous hx of etOH use disorder - started drinking heavily after her in 1988. Was drinking 12 pack of beer every day x 15 years and then decreased 6 beers per day. She completely quit drinking almost 4 years ago when she had the admission to [facility]. 05/30/23: Here with her grand-daughter Brandie today. business banking relationship manager present for assistance. Pt has brought in her endoscopy reports which are summarised as below. Otherwise no acute gastrointestinal complaints today. EGD 08/08/22: (Dr Ector Hedrick [place]) Esophageal varices Hiatal hernia Grade II-III PHG [place] 08/09/22: AC AVM x2 polyps cold forceps polypectomy US Abd 05/2022: Normal liver echogenicity, spleen 8.7 cm. Based on above - quite surprising to see normal liver and spleen, sabas given gross portal hypertensive changes noted on endoscopy. Secondly, unclear if pt got esophageal banding based on report available. She remains on Nadolol 40 however. Path not available and pt does not recall interval for next colo. 06/26/23: Esophageal varices with high risk stigmata (EVBL x4) GOV-1 Portal hypertensive gastropathy Hiatal hernia Normal duodenum 07/10/23: Pt here by herself. Seen with an in person sports management internship after multiple attempts to use the online sports management internship. Reviewed findings on EGD including CSPH with large varices despite Nadolol. Pt reports compliance to carvedilol BID. Did not take carvedilol this AM so suspect BP and HR a bit higher than it typically is. Also missed her US Abd appt last week due to lack of transport. Daughter was out of state due to a conference. Has not been able to take heplisav vaccine either for this reason. 12/12/23: Here with her daughter. Does not report any GI sx to include abd pain, N,V, D. No abd distention, shortness of breath. US liver reviewed. Still not vacccinated for HBV. Will resend Heplisav. Coreg was increased to 12.5 BID - now HR 60-80, BP still high above 140 most of the days. Daughter worried about pt's mood however pt reluctant to seek out further assessment or referral to therapy. Also reviewed diet which is carb heavy at this time. 06/11/24: No GI sx. Has been having upper resp sx for the past 2 days. Reports cough, headaches, runny nose. No reported sick contacts. Current meds Coreg 12.5 BID US Abd: LIVER: The liver is normal in size. Coarse liver echotexture and nodular contour consistent with cirrhosis. Nonspecific 5 mm echogenic lesion in the right hepatic lobe. This is new/newly apparent when compared to prior. There is no intrahepatic biliary duct dilatation seen. [facility] Medical History Hyperlipemia HTN (hypertension) Surgical History History of esophagogastroduodenoscopy (EGD) Hx of colonoscopy Social History Household Members: Family Alcohol intake: never Patient Tobacco Use Status: Never used Tobacco Review of Systems Const All systems reviewed & are unremarkable except as noted in HPI and below Physical Exam Vital Signs: Last Vital Signs Pulse 69 06/11/24 09:31 BP 141/61 H 06/11/24 09:31 BMI result Body Mass Index 29.3 Mild tachypnea No abd tenderness or distention No asterixis Assessment & Plan Assessment & Plan (1) Liver lesion, right lobe: Code(s): K76.9 - Liver disease, unspecified Category: Medical (2) Elevated LFTs: Code(s): R79.89 - Other specified abnormal findings of blood chemistry Category: Medical (3) Chronic liver disease: Code(s): K76.9 - Liver disease, unspecified Category: Medical Plan 1. Liver lesion noted on most recent US. Will proceed with an MRI liver protocol. 2. URI: flu/RSV/covid testing ordered. Pt advised masking and good hand hygiene. 3. Compensated etOH and MAFLD related cirrhosis -- MELD-Na 6 -- CSPH with nonbleeding varices (EVBL 06/2023, on coreg) Cont coreg 12.5 BID for variceal prophylaxis. Due for EGD which is booked for 07/03. Educated on dietary recommendations for pt with cirrhosis sabas good proteins and adding a night time snack. - Check updated MELD labs - Carvedilol 12.5 BID - MRI liver protocol as above - Repeat EGD in 06/2024 - HBV vaccination to be done through office AFTER pt recovers from URI. - Low MELD and compensated cirrhosis, no indication for referral for transplant eval at this time 4. Polyps: Path not available - pt recalls being told they were benign polyps. Assuming diminutive adenomas, will give her 7 year interval i.e due in 2028. Follow up in 6months Orders: Orders MR abdomen wo/w con Today K76.9 - Liver disease, unspecified Complete Blood Count no Diff Today K76.9 - Liver disease, unspecified Liver Panel Today K76.9 - Liver disease, unspecified SARS-CoV2/FLU/RSV Today R09.89 - Other specified symptoms and signs involving the circulatory and respiratory systems Comprehensive Met. Panel Today K76.9 - Liver disease, unspecified Coding Level of Care Code Est Pt Level 4 (76852) Diagnoses Liver lesion, right lobe K76.9 Elevated LFTs R79.89 Chronic liver disease K76.9
[2024-06-11 09:31] VITALS: BP 141/61; PULSE 69; BMI 29.3
== END 2024-06-11 10:02 | disposition home or self-care (01) ==
PROVIDERS: PCP Family Medicine; Visit Provider Internal Medicine
DX: K76.9 Liver disease, unspecified (principal); R79.89 Other specified abnormal findings of blood chemistry
CPT/HCPCS: 99214

== ENCOUNTER → 2024-07-14 08:17 | Outpatient (BNV) | payer MEDICARE, MEDICAID, SELFPAY | PROVIDERS: PCP Family Medicine; Visit Provider Radiology Diagnostic Radiology | DX: K76.9 Liver disease, unspecified (principal) | CPT/HCPCS: 74183 ==

== ENCOUNTER 2024-07-14 08:28 | Outpatient (REF) | payer MEDICARE, MEDICAID, SELFPAY ==
[2024-07-14] MEDS: gadobutroL 7.5 ML VIAL IVPUSH (09:33)
== END 2024-07-14 08:29 | disposition home or self-care (01) ==
LOC: HO.MRI 08:28
PROVIDERS: PCP Family Medicine; Visit Provider Internal Medicine
DX: Z23 Encounter for immunization (principal); K76.9 Liver disease, unspecified; R79.89 Other specified abnormal findings of blood chemistry
CPT/HCPCS: 74183; 90471; 90746; 99212; A9585

== ENCOUNTER 2024-07-14 11:45 | Outpatient (AMB) | payer MEDICARE, MEDICAID, SELFPAY ==
--- NOTE | 2024-07-14 11:47 | A.OFFVIS_ITS ---
Vital Signs 07/14/24 11:48 Height 5 ft 3 in Weight 153 lb BMI 27.1 BP 122/56 L Blood Pressure Location Lt brachial Position Sitting Pulse 60 Intake Visit Reasons: S/p egd Intake Note: Patient follow up for chronic liver disease, lab and MRI results. Patient cc: acid reflex with abdominal pain, also patient did the MRI this morning. Machine Pie Maker Required: Yes Machine Pie Maker Name: [facility] Interpeter Accompanied by: Self / Same As Patient Allergies No Known Allergies Allergy (Verified 07/14/24 11:47) HPI Comments Details: 67 y.o F with PMH of etOH use, HTN and hypothyroidism who is here to discuss GI issues as below. 04/18/23: Accompanied by her daughter. Encounter complted with the help of parimutuel ticket seller. Reason for referral is a bit unclear as PCP's note mentions that she is due for colon cancer screening however pt's daughter reports she had an upper endoscopy and colonoscopy just last year from [place]. They tell me they had given a copy of the report to their PCP. Daughter also reports possible cirrhosis vs fatty liver. Daughter reports that a few years ago she had an admission to [facility] for heavy epistaxis and at that time she was told she may have cirrhosis. However when she saw her stockkeeper in [place] last year, she was told she had fatty liver without cirrhosis. However ?? she was also given Nadolol by that same provider. They are also not sure if she ever had ascites - at some point she had swollen belly and was started on lasix but that was stopped within a few weeks. Pt does have previous hx of etOH use disorder - started drinking heavily after her in 1988. Was drinking 12 pack of beer every day x 15 years and then decreased 6 beers per day. She completely quit drinking almost 4 years ago when she had the admission to [facility]. 05/30/23: Here with her grand-daughter Brandie today. parimutuel ticket seller present for assistance. Pt has brought in her endoscopy reports which are summarised as below. Otherwise no acute gastrointestinal complaints today. EGD 08/08/22: (Dr Ector Hedrick [place]) Esophageal varices Hiatal hernia Grade II-III PHG [place] 08/09/22: AC AVM x2 polyps cold forceps polypectomy US Abd 05/2022: Normal liver echogenicity, spleen 8.7 cm. Based on above - quite surprising to see normal liver and spleen, sabas given gross portal hypertensive changes noted on endoscopy. Secondly, unclear if pt got esophageal banding based on report available. She remains on Nadolol 40 however. Path not available and pt does not recall interval for next colo. 06/26/23: * Esophageal varices with high risk stigmata (EVBL x4) * GOV-1 * Portal hypertensive gastropathy * Hiatal hernia * Normal duodenum 07/10/23: Pt here by herself. Seen with an in person weight checker after multiple attempts to use the online weight checker. Reviewed findings on EGD including CSPH with large varices despite Nadolol. Pt reports compliance to carvedilol BID. Did not take carvedilol this AM so suspect BP and HR a bit higher than it typically is. Also missed her US Abd appt last week due to lack of transport. Daughter was out of state due to a conference. Has not been able to take heplisav vaccine either for this reason. 12/12/23: Here with her daughter. Does not report any GI sx to include abd pain, N,V, D. No abd distention, shortness of breath. US liver reviewed. Still not vacccinated for HBV. Will resend Heplisav. Coreg was increased to 12.5 BID - now HR 60-80, BP still high above 140 most of the days. Daughter worried about pt's mood however pt reluctant to seek out further assessment or referral to therapy. Also reviewed diet which is carb heavy at this time. 06/11/24: No GI sx. Has been having upper resp sx for the past 2 days. Reports cough, headaches, runny nose. No reported sick contacts. Current meds Coreg 12.5 BID US Abd: LIVER: The liver is normal in size. Coarse liver echotexture and nodular contour consistent with cirrhosis. Nonspecific 5 mm echogenic lesion in the right hepatic lobe. This is new/newly apparent when compared to prior. There is no intrahepatic biliary duct dilatation seen. 07/14/24: Here for follow up. Unfortunately had to miss her EGD as she didnt follow the instructions and ate the day of. Reports never received instructions despite us discussing the procedure date and instructions in office at last visit. Otherwise no acute concerns at this time. Had her MRI this morning - results pendnig. [facility] Medical History Hyperlipemia HTN (hypertension) Surgical History History of esophagogastroduodenoscopy (EGD) Hx of colonoscopy Social History Household Members: Family Alcohol intake: never Patient Tobacco Use Status: Never used Tobacco Review of Systems Const All systems reviewed & are unremarkable except as noted in HPI and below Physical Exam Vital Signs: Last Vital Signs Pulse 60 07/14/24 11:48 BP 122/56 L 07/14/24 11:48 BMI result Body Mass Index 27.1 No apparent distress Nonicteric Abdomen soft, nondistended Alert and oriented x3, normal gait Immunizations Engerix-B (PF) 20 mcg/mL intramuscular suspension Performing Provider: Stephanie Motta MD Performing Location: [facility] Administered by: Pebbles Maza RN on 07/14/24 12:33 Dose Route Admin Location Dispensed Lot Number Expiration Date [facility] Employee Operations Examiner 1 mL IM Left Deltoid 1 mL [id number] 08/31/26 [id number] [place] VIS Given Date VIS Provided VIS Publication Date 07/14/24 Single Vaccine 23 Eligibility Eligibility Date Funding Source Not [facility] Eligible 07/14/24 Private Assessment & Plan Assessment & Plan (1) Liver lesion, right lobe: Code(s): K76.9 - Liver disease, unspecified Category: Medical (2) Elevated LFTs: Code(s): R79.89 - Other specified abnormal findings of blood chemistry Category: Medical (3) Chronic liver disease: Code(s): K76.9 - Liver disease, unspecified Category: Medical Plan 1. Liver lesion noted on most recent US. MRI liver protocol completed this morning. Report pending. 3. Compensated etOH and MAFLD related cirrhosis -- MELD-Na 6 -- CSPH with nonbleeding varices (EVBL 06/2023, on coreg) Cont coreg 12.5 BID for variceal prophylaxis. EGD booked for 07/03 had to be canceled as above. Msg sent to rebook this. Educated on dietary recommendations for pt with cirrhosis sabas good proteins and adding a night time snack. - Carvedilol 12.5 BID - EGD to be rebooked. Msg sent. Instructions again reviewed verbally and handout provided as well. - HBV vaccination due - first dose today. - Low MELD and compensated cirrhosis, no indication for referral for transplant eval at this time 4. Polyps: Path not available - pt recalls being told they were benign polyps. Assuming diminutive adenomas, will give her 7 year interval i.e due in 2028. Follow up in 6months Orders: Orders Hepatitis B Adult Immunization Today Z23 - Encounter for immunization Coding Level of Care Code Est Pt Level 4 (18635) Diagnoses Liver lesion, right lobe K76.9 Elevated LFTs R79.89 Chronic liver disease K76.9
[2024-07-14 11:48] VITALS: BP 122/56; PULSE 60; BMI 27.1
== END 2024-07-14 12:32 | disposition home or self-care (01) ==
PROVIDERS: PCP Family Medicine; Visit Provider Internal Medicine
DX: K76.9 Liver disease, unspecified (principal); R79.89 Other specified abnormal findings of blood chemistry; Z23 Encounter for immunization
CPT/HCPCS: 99214

== ENCOUNTER 2024-08-13 07:49 | Outpatient (AMB) | payer MEDICARE, MEDICAID, SELFPAY ==
--- NOTE | 2024-08-13 08:10 | AM.OFFVISNUR ---
Intake Visit Reasons: Hep B #2 Allergies No Known Allergies Allergy (Verified 07/14/24 11:47) Assessment & Plan Assessment & Plan Orders: Orders Hepatitis B Adult Immunization Today Z23 - Encounter for immunization Medications: New Engerix-B (PF) (hepatitis B virus vacc.rec(PF)) 1 mL IM ONCE 1 mL 0RF NS Z23 - Encounter for immunization
== END 2024-08-13 08:12 | disposition home or self-care (01) ==
PROVIDERS: PCP Family Medicine; Visit Provider Internal Medicine
DX: Z23 Encounter for immunization (principal)

== ENCOUNTER → 2024-08-13 07:49 | Outpatient (BNVA) | payer MEDICARE, MEDICAID, SELFPAY | PROVIDERS: PCP Family Medicine; Visit Provider Internal Medicine | DX: Z23 Encounter for immunization (principal) | CPT/HCPCS: 90471; 90746; 99211 ==

== ENCOUNTER 2024-11-27 10:07 | Day surgery (SDC) | payer MEDICARE, MEDICAID, SELFPAY ==
[2024-11-25 13:34] VITALS: BMI 27.1
--- NOTE | 2024-11-26 08:53 | HO.ANESPROP2 ---
Documented by User: Rachel Flores NP 11/26/24 08:54 HPI - Anesthesia Eval Consult details Narrative: 69yo F for Upper Endoscopy Cirrhosis PMFSH Active Problems Active Problems: All Active Problems Cirrhosis (Acute) Liver lesion, right lobe (Acute) Elevated LFTs (Acute) Personal history of colonic polyps (Acute) Chronic liver disease (Acute) Past Medical History Medical History Hyperlipemia HTN (hypertension) Family History Family history of problems with anesthesia: No Surgical History Surgical History History of esophagogastroduodenoscopy (EGD) Hx of colonoscopy History of Problems with Anesthesia: No Social History Social History Household Members: Family Alcohol intake: never Patient Tobacco Use Status: Never used Tobacco Advance Directives: No Advance Directives Information Provided: Yes Meds Allergies Allergy/AdvReac Type Severity Reaction Status Date / Time No Known Allergies Allergy Verified 07/14/24 11:47 Home Medications ?Medication ?Instructions ?Recorded ?Confirmed ?Last Taken ?Type blood pressure test kit-large #1 ea 04/18/23 Unknown History famotidine 40 mg tablet 40 mg PO BEDTIME PRN heartburn 04/18/23 Unknown History furosemide 20 mg tablet 20 mg PO QAM 04/18/23 Unknown History levothyroxine 25 mcg tablet 75 mcg PO QAM 04/18/23 06/26/23 06/26/23 History losartan 50 mg tablet 50 mg PO QAM 04/18/23 06/26/23 06/26/23 History albuterol sulfate 90 mcg/actuation 2 puff inhalation Q4H PRN wheezing 05/30/23 Unknown History aerosol inhaler Exam Height,Weight and Vital Signs: Height 5 ft 3 in Weight 69.4 kg Pertinent Lab Results Pertinent Lab Results: Laboratory Tests 06/11/24 10:26 WBC 9.4 Hgb 13.8 Hct 41.3 Plt Count 151 L Sodium 140 Potassium 4.3 Chloride 105 Carbon Dioxide 29 BUN 8 L Creatinine 0.81 Narrative Narrative: MR abdomen wo/w con 2023 IMPRESSION: Cirrhosis without ascites. Heterogeneous nodular hepatic parenchyma without arterial phase enhancing lesion. 0.6 cm cystic lesion, right hepatic lobe. Varices, gastroesophageal junction. Assessment and Plan Assessment Anesthesia Assessment: Chart Reviewed Final Anesthetic Review Family History of Problems with Anesthesia: No History of Problems with Anesthesia: No Documented by User: Ashli Tan MD 11/27/24 12:22 [facility] Past Medical History Medical History Hyperlipemia HTN (hypertension) Surgical History Surgical History History of esophagogastroduodenoscopy (EGD) Hx of colonoscopy Social History Social History Household Members: Family Alcohol intake: never Patient Tobacco Use Status: Never used Tobacco Advance Directives: No Advance Directives Information Provided: Yes Meds Allergies Allergy/AdvReac Type Severity Reaction Status Date / Time No Known Allergies Allergy Verified 07/14/24 11:47 Home Medications ?Medication ?Instructions ?Recorded ?Confirmed ?Last Taken ?Type blood pressure test kit-large #1 ea 04/18/23 Unknown History famotidine 40 mg tablet 40 mg PO BEDTIME PRN heartburn 04/18/23 Unknown History furosemide 20 mg tablet 20 mg PO QAM 04/18/23 Unknown History levothyroxine 25 mcg tablet 75 mcg PO QAM 04/18/23 06/26/23 06/26/23 History losartan 50 mg tablet 50 mg PO QAM 04/18/23 06/26/23 06/26/23 History albuterol sulfate 90 mcg/actuation 2 puff inhalation Q4H PRN wheezing 05/30/23 Unknown History aerosol inhaler Exam Airway Mallampati Class: II TM Dist: >3cm Neck ROM: Full Loose/Missing/Broken Teeth: No Heart: RRR Lungs: CTA Assessment and Plan Assessment Anesthesia Assessment: Anesthesia Plan Discussed Final Anesthetic Review NPO: Yes ASA Class: III Final Preanesthetic Review: Meds/Allgs Chart Reviewed, Consent Obtained/Reviewed and Anes Risks/Benef Reviewed Patient Risk: Intermediate Procedure Risk: Intermediate Anesthetic Plan Anesthetic Plan: MAC: Disposition: Standard PACU
[2024-11-27 11:32] VITALS: BP 147/46; PULSE 61; RESP 16; TEMP 36.8; O2SAT 99
--- NOTE | 2024-11-27 11:32 | MHC.SHP ---
Pre-Procedural Eval Section A - 24 Hr Update-Section A only Date of Service: 11/27/24 Section B - Complete if H&P > 30 days Chief Complaint: Liver disease, unspecified Present Medications: see Short Stay Collaborative assessment Allergies: Allergies Allergy/AdvReac Type Severity Reaction Status Date / Time No Known Allergies Allergy Verified 07/14/24 11:47 Review of Systems Review of Systems Comment: Ten point ROS negative Exam Exam Comment: Gen appear: No acute distress HEENT: no icterus Chest: No overt resp distress Abd: soft, nontender, nondistended Psych: Stable affect, answering questions appropriately Neuro: A/Ox3 noted to move all extremities spontaneously Ext: no peripheral edema Plan Diagnosis/Plan: Unchanged I have reviewed the history and physical and performed a pertinent physical examination on my patient. No changes have occurred unless specified. Time Spent With Patient Time: Total time managing care of this patient today ____ minutes.
[2024-11-27] MEDS: Lactated Ringers 1,000 ML 100 ML IVCONT (11:36)
--- NOTE | 2024-11-27 12:42 | P.OP_ITS ---
Operative Note Operative Note Date of Service: 11/27/24 Narrative: Procedure: Esophagogastroduodenoscopy Endoscopist: Stephanie Motta MD Indication: Cirrhosis, variceal screening Anesthesia Provider: Dr Tania Tan Anesthesia Type: MAC ?? EGD Procedure:?? The procedure, indications, preparation and potential complications were reviewed with the patient, who indicated understanding and gave written informed consent to proceed with the help of a river crossing supervisor. A physical exam was performed. The endoscope was introduced through the mouth, and advanced to the second part of duodenum. The mucosa was carefully examined on slow withdrawal of the endoscope. The patient tolerated the procedure well. There were no immediate complications.? ? EGD Findings:? * Esophagus:? Mild narrowing was noted at the level of cricopharyngeus. The Z line was at 35 cm. Large varices occupying > 50% of the lumen were noted up to 25 cm with red justo signs. * Stomach:?Diffuse congestion and erythema in mosaic pattern consistent with portal hypertensive gastropathy was noted in the whole stomach. Retroflexion in the cardia showed a small hiatal hernia. * Duodenum:? Normal mucosa was noted in the whole of the examined duodenum. Additional intervention: The gastroscope was removed and a [employer] multishooter was attached in the usual fashion. 2 bands were deployed starting at 34 to 31 cm in a spiral fashion with complete decompression of varices at the completion of banding. EGD Impressions:? * Esophageal varices with high risk stigmata (EVBL x2) * Portal hypertensive gastropathy * Normal duodenum ?? Recommendations:?? * Clear liquids today. * Add sucralfate liquid 1g QID x 2 weeks * Continue carvedilol 12.5 BID * Avoid NSAIDs. * Repeat EGD in 8-12 weeks Above has been reviewed with the patient.
[2024-11-27 12:45] VITALS: BP 129/62; PULSE 79; RESP 18; TEMP 36.3; O2SAT 100
[2024-11-27 13:00] VITALS: BP 157/67; PULSE 74; RESP 18; O2SAT 100
== END 2024-11-27 14:02 | disposition home or self-care (01) ==
PROVIDERS: PCP Family Medicine; Visit Provider Internal Medicine
PROC: 0DJ08ZZ Inspection of Upper Intestinal Tract, Via Natural or Artificial Opening Endoscopic (ICD-10-PCS; CPT 43235; principal; 2024-11-27 13:00)
DX: K76.6 Portal hypertension (principal); K31.89 Other diseases of stomach and duodenum; I85.10 Secondary esophageal varices without bleeding; K44.9 Diaphragmatic hernia without obstruction or gangrene; K76.9 Liver disease, unspecified; I10 Essential (primary) hypertension; E78.5 Hyperlipidemia, unspecified; E03.9 Hypothyroidism, unspecified; R79.89 Other specified abnormal findings of blood chemistry; Z79.899 Other long term (current) drug therapy
CPT/HCPCS: 43244; J2003; J2704

== ENCOUNTER → 2024-11-27 10:07 | Outpatient (BNV) | payer MEDICARE, MEDICAID, SELFPAY | PROVIDERS: PCP Family Medicine; Visit Provider Internal Medicine | DX: I85.00 Esophageal varices without bleeding (principal); K74.60 Unspecified cirrhosis of liver; K31.89 Other diseases of stomach and duodenum | CPT/HCPCS: 43244 ==

== ENCOUNTER 2025-01-05 07:16 | Outpatient (REF) | payer MEDICARE, MEDICAID, SELFPAY ==
--- NOTE | ~2025-01-05 | US_ITS ---
CLINICAL HISTORY: K74.60 - Unspecified cirrhosis of liver US abdomen limited Comparison: 02/04/2024 Findings: The visualized pancreas is normal. The aorta and inferior vena cava are normal caliber. The appearance of the liver is consistent with the clinical diagnosis of cirrhosis. There is a 7 mm benign incidental right lobe cyst and a 6 mm calcified hemangioma. There is no intrahepatic bile duct dilatation. The common duct is 2.0 mm in diameter. The gallbladder is normal. There is no sonographic De Leon sign. The main portal vein is antegrade. The right kidney is 11.1 cm in length. No ascites. IMPRESSION: Findings consistent with the clinical diagnosis of cirrhosis. No acute findings. This document has been electronically signed by: Perfecto Frank MD on 01/05/2025 08:51:27
== END 2025-01-05 07:17 | disposition home or self-care (01) ==
LOC: HO.US 07:16
PROVIDERS: PCP Family Medicine; Visit Provider Internal Medicine
DX: K74.60 Unspecified cirrhosis of liver (principal)
CPT/HCPCS: 76705

== ENCOUNTER → 2025-01-05 07:19 | Outpatient (BNV) | payer MEDICARE, MEDICAID, SELFPAY | PROVIDERS: PCP Family Medicine; Visit Provider Specialist | DX: K74.60 Unspecified cirrhosis of liver (principal) | CPT/HCPCS: 76705 ==

== ENCOUNTER 2025-02-10 07:29 | Outpatient (AMB) | payer MEDICARE, MEDICAID, SELFPAY ==
--- OUTSIDE RECORDS SUMMARY | 2025-02-10 07:31 | XMS_ITS | Encounter Summary ---
Author Organization [employer] Address [address] [facility] [facility] [address] [place] [address] Care Team Providers Care Otolaryngology Rep Name Role Phone Evelyn Lyon MD Primary Care Provider [phone] Reason for Visit * Reason Comments Med Refill Encounter Details Date Type Department Care Team ([facility] st Contact Info) Description 06/03/2024 Refill [facility] [address] [place] [address] Evelyn Lyon MD [address] [place] [address] Social History Tobacco Use Types Packs/Day Years Used Date Smoking Tobacco: Never Passive Smoke Exposure: Never Smokeless Tobacco: Never Alcohol Use Standard Drinks/Week Comments Never 0 (1 standard drink = 0.6 oz pur e alcohol) Depression Answer Date Recorded Patient Health Questionnaire-9 Score 4 12/04/2022 Housing Stability Answer Date Recorded What is your housing situation today? I have lou lizarraga 07/10/[address] you li ve. Do you have problems with any of the following? None of the above 07/10/2023 Food Insecurity Answer Date Recorded Within the past 12 months, y ou worried that your food would run out before you got money to buy more: Never True 07/10/2023 Within the past 12 months,th e food you bought just didn't last and you didn't have enough money to get more: Never True Transportation Answer Date Recorded In the past 12 months, has l ack of transportation kept you from medical appts, meetings, work or from getting things needed for daily living? No 07/10/2023 Utilities Answer Date Recorded In the past 12 months, has t he electric, gas, oil or water [employer] threatened to shut off services in your home? No 07/10/2023 Depression Answer Date Recorded Patient Health Questionnaire-2 Score 1 12/04/2022 Comments Unknown Sex and Gender Information Value Date Recorded Sex Assigned at Female 07/24/2022 10:30 AM EDT Legal Sex Female 10:30 AM EDT Gender Identity Female 12/04/2022 9:16 AM EDT Sexual Orientation Straight 08/05/2024 8: 37 AM EST documented as of this encounter Plan of Treatment Not on file documented as of this encounter Visit Diagnoses Not on filedocumented in this encounter Additional Health Concerns Assessment Noted Time PHQ-9 Depression Total Score: 4 12/05/19 23 9:48 AM EDT documented as of this encounter Care Teams Otolaryngology Rep Relationship Specialty Start Date End Date Evelyn Lyon MD [address] [place] [id number] PCP - General Family Medicine 12/04/22 [facility] [employer] [facility] [address] [place] [id number] 09/24/23 Stephanie Motta MD Consulting Physician Gastroenterology 07/31/24 documented as of this encounter
--- OUTSIDE RECORDS SUMMARY | 2025-02-10 07:31 | XMS_ITS | Clinical Summary ---
Author Organization [employer] [facility] ity Address [address] [place] [address] Care Team Providers Care Net Coordinator Name Role Phone Unavailable Primary Care Provider Unavailabl e Social History Tobacco Use Types Packs/Day Years Used Date Smoking Tobacco: Never Assessed Comments Unknown Sex and Gender Information Value Date Recorded Sex Assigned at Not on file Legal Sex Female 11:37 AM EDT Gender Identity Not on file Sexual Orientation Not on file Plan of Treatment Health Maintenance Due Date Last Done Comments Breast Cancer Screening 1955 DTaP,Tdap,and Td Vaccines (1 - Tdap) 1973 Pneumococcal Vaccine: 50+ Ye ars (1 of 1 - PCV) 2004 Zoster Vaccines (1 of 2) 2004 COVID-19 Vaccine ( - 2023-2 5 season) 2024 Colorectal Cancer Screening: Colonoscopy 07/03/2024 Depression Screening 07/03/2024 Falls Risk Assessment 07/03/2024 Hepatitis C Screening 07/03/2024 Osteoporosis Screening (Bone Density Screening) 07/03/2024 Social Influencers of Health Screening 07/03/2024 Influenza Vaccine (Season Ended) 2025 RSV Immunization Adult Patie nts (1 - 1-dose 75+ series) 2029 HIB Vaccines Aged Out No longer eligi ble based on patient's age to complete this topic HPV Vaccines Aged Out No longer eligi ble based on patient's age to complete this topic Hepatitis A Vaccines Aged Out No long er eligible based on patient's age to complete this topic Hepatitis B Vaccines Aged Out No long er eligible based on patient's age to complete this topic IPV Vaccines Aged Out No longer eligi ble based on patient's age to complete this topic MMR Vaccines Aged Out No longer eligi ble based on patient's age to complete this topic Meningococcal ACWY Vaccine Aged Out N o longer eligible based on patient's age to complete this topic Meningococcal B Vaccine Aged Out No l onger eligible based on patient's age to complete this topic RSV Immunization Patients Un bossman 20 months Aged Out No longer eligible b ased on patient's age to complete this topic Varicella Vaccines Aged Out No longer eligible based on patient's age to complete this topic
--- OUTSIDE RECORDS SUMMARY | 2025-02-10 07:31 | XMS_ITS | Clinical Summary ---
Author Organization [employer] Address [address] [facility] [address] [place] [address] Care Team Providers Care Manager Helpdesk Name Role Phone Evelyn Lyon MD Primary Care Provider [phone] Allergies No known active allergies Medications Blood Pressure kitIndications:E levated blood pressure reading 1 Units in the morning. 1 kit 3 Active albuterol 108 (90 Base) MCG/ACT inhalerIndicatio ns:Chronic cough Inhale 2 puffs every 4 (four) hours if needed for wheezing. 18 g 3 Active loratadine (Claritin) 10 MG tabletIndication s:Chronic cough Take 1 tablet (10 mg) by mouth in the morning. 30 tablet 3 Active nadolol (Corgard) 40 MG tabletIndication s:Esophageal varices without bleeding, unspecified esophageal varices type (CMS/HCC) TAKE ONE TABLET BY MOUTH EVERY MORNING 90 tablet 1 3 Active famotidine (Pepcid) 40 MG tabletIndication s:Esophageal varices without bleeding, unspecified esophageal varices type (CMS/HCC) TAKE ONE TABLET BY MOUTH AT BEDTIME NEEDED HEARTBURN 90 tablet 1 3 Active losartan (Cozaar) 50 MG tablet TAKE 1 TABLET BY MOUTH EVERY DAY IN THE MORNING 90 tablet 1 3 Active pantoprazole (ProtoNix) 40 MG EC tabletIndication s:Chronic cough TAKE 1 TABLET BY MOUTH BEFORE BREAKFAST. DO NOT CRUSH, CHEW, OR SPLIT. 90 tablet 1 4 Active carvedilol (Coreg) 12.5 MG tablet TAKE 1 TABLET BY MOUTH TWICE A DAY 180 tablet 1 5 Active levothyroxine (Synthroid, Levoxyl) 25 MCG tablet TAKE 3 TABLETS BY MOUTH BEFORE BREAKFAST 270 tablet 1 5 Active Active Problems Problem Noted Date Diagnosed Date Mild cognitive impairment 08/07/2024 Assessment & Plan (08/08/2024 1:15 AM EST): If MR brain w/o contrast is negative, pt will be referred to Neurology. Stress incontinence in female 07/31/2024 Assessment & Plan (08/07/2024 3:26 PM EST): Evita Wiley requires liner given a history of stress incontinence, she has had appropriate workup, treatment and referrals to evaluate for potential reversible factors contributing to her incontinence with partial/incomplete resolution of symptoms. . The patient has the following risk factors for developing incontinence ( F: high parity, hx of vaginal deliveries, menopause, impaired cognitive function, impaired mobility, increasing age, obesity). Prior referrals: [employer] [facility] Prior pelvic/rectal examination: 08/07/24 Chronic cough 05/10/2023 Assessment & Plan (05/10/2023 12:10 PM EDT): Patient with chronic cough exacerbated as of x1 week with associated pharyngeal ithciness. Will send inhaler and start on low dose prednisone 20 mg. Chest pain 05/10/2023 Assessment & Plan (05/10/2023 12:11 PM EDT): Patient with L sided chest pain with associated fatigue and intermittent palpitations. Given family hx of [place], will send for stress test. Tinea pedis of right foot 05/10/2023 Assessment & Plan (05/10/2023 12:12 PM EDT): Patient with dryness and tinea pedis of R foot with moccasin distribution upon examination. Will start on Lamisil 1% cream. Colon cancer screening 05/10/2023 Paraspinal muscle spasm 02/01/2023 Assessment & Plan (02/01/2023 2:33 PM EDT): Patient with right sided back pain that radiates to lower extremity and paraspinal spasms upon examination. Will send for MRI of back. Primary hypertension 01/01/2023 Assessment & Plan (08/08/2024 1:12 AM EST): Elevated 143/69 but better than last visit. Pt was advised to keep log of her BP readings and to bring them to next visit. Continue current regimen. Assessment & Plan (07/31/2024 9:48 PM EST): Elevated BP 158/74. Pt states she has controlled readings at home. Pt was advised to keep log of her BP readings and to bring them to next visit. Continue current regimen. Assessment & Plan (02/01/2023 2:32 PM EDT): Slightly elevated at time of visit 142/78 mmHg. Per patient contrlled readings at home. Continue current regimen. Will follow up in 3 months. Assessment & Plan (01/01/2023 1:05 PM EDT): Uncontrolled. Will incr dose of losartan to 50 mg and f/up in 1 month. Target < 140/90 mmHg Esophageal varices without bleeding 12/04/2022 Overview (11/27/2024): EGD Impressions:?? 11/2024 with Stephanie Motta MD * Esophageal varices with high risk stigmata (EVBL x2) * Portal hypertensive gastropathy * Normal duodenum Recommendations:? * Clear liquids today. * Add sucralfate liquid 1g QID x 2 weeks * Continue carvedilol 12.5 BID * Avoid NSAIDs. * Repeat EGD in 8-12 weeks Assessment & Plan (12/04/2022 3:01 PM EDT): Patient on bb and H2 li, brought EGD from [place] with esophageal varices, also has diverticulosis and colonic polyps. GI referral placed Hypothyroidism 12/04/2022 Assessment & Plan (12/04/2022 3:01 PM EDT): Will check level Alcoholic cirrhosis of liver without ascites 03/ Assessment & Plan (02/01/2023 2:35 PM EDT): Improvement with lasix. Will refer to gastroenterology. Assessment & Plan (12/04/2022 3:05 PM EDT): Mild fluid on examination, will send lasix, f/up results and also records from [place]. Patient also with elevated BP, will cont monitoring f/up in 2 weeks Overweight 12/04/2022 Encounters Date Type Department Care Team Description 01/05/2025 Orders Only [facility] External Provider, [facility] 12/25/2024 Telephone [facility] [address] [place] [address] Evelyn Lyon MD 12/05/2024 Population Health Risk Score [facility] ([facility]) Department [address] [phone] Provider, Population Health Generic 11/21/2024 8:00 AM EST Office Visit [facility] [address] [place] [address] Clinton Leo, SHIRLEY Dental caries (Primary Dx); Abfraction; Dentin hypersensitivity 11/14/2024 Refill [facility] [address] [place] [address] Evelyn Lyon MD from Last 3 Months Immunizations Immunization Administration Dates Next Due Hep B, adult 07/14/2024 Influenza, High Dose Seasonal, Preservative Free 07/31/2024 Pneumococcal Conjugate PCV 20 05/10/2023 Tdap 07/31/2024 Zoster, Recombinant 10/13/2023,07/10/2023 Social History Tobacco Use Types Packs/Day Years Used Date Smoking Tobacco: Never Passive Smoke Exposure: Never Smokeless Tobacco: Never Tobacco Cessation:Counseling Given: Not Answered Alcohol Use Standard Drinks/Week Comments Never 0 (1 standard drink = 0.6 oz pur e alcohol) Alcohol Answer Date Recorded Frequency of Alcohol Consumption Not on file 07/31/2024 Average Number of Drinks Not on file 024 Frequency of Binge Drinking Not on file 03/2024 Score 0 07/31/2024 Depression Answer Date Recorded Patient Health Questionnaire-9 Score 12 07/31/2024 Patient Health Questionnaire-9 Score 12 07/31/2024 Last PHQ-9: Questionnaire Data Not on file 1 09/30/2023 Housing Stability Answer Date Recorded What is [...] t he electric, gas, oil or water company threatened to shut off services in your home? No 07/10/2023 Depression Answer Date Recorded Patient Health Questionnaire-2 Score 2 07/31/2024 Comments Unknown Sex and Gender Information Value Date Recorded Sex Assigned at Female 07/24/2022 10:30 AM EDT Legal Sex Female 10:30 AM EDT Gender Identity Female 12/04/2022 9:16 AM EDT Sexual Orientation Straight 08/05/2024 8: 37 AM EST Last Filed Vital Signs Vital Sign Reading Time Taken Comments Blood Pressure 130/66 11/21/2024 8:05 AM EST Pulse 77 08/07/2024 2:37 PM EST Temperature 36.3 ??C (97.4 ??F) 08/07/2024 2:37 PM ES T Respiratory Rate 18 08/07/2024 2:37 PM EST Oxygen Saturation 99% 08/07/2024 2:37 PM EST Inhaled Oxygen Concentration - - Weight 76 kg (167 lb 9.6 oz) 08/07/2024 2:37 PM EST Height 159 cm (5' 2.6 ) 08/07/2024 2:37 PM EST Body Mass Index 30.07 08/07/2024 2:37 PM EST Plan of Treatment Health Maintenance Due Date Last Done Comments CT Colonography 1955 Colonoscopy 1955 FIT 1955 FOBT 1955 Sigmoidoscopy 1955 Hepatitis A Vaccines (1 of 2 - Risk 2-dose series) 1973 RSV Patients and Patients Aged 60 years or older (1 - Risk 60-74 years 1-dose series) 2014 Mammogram 10/07/2020 10/07/2018, 09/24, 09/18/2017 SDOH Screening 12/05/2023 12/04/2022 Hepatitis B Vaccines (3 of 3 - Risk 3-dose series) 01/12/2025 08/13/2024, 07/14/2024 Dental Prophylaxis 02/03/2025 08/05/2024, 0 03/11/2018, 09/07/2017, Additional history exists Dental Oral Exam 03/03/2025 09/01/2024, , 09/07/2017, Additional history exists Alcohol/Substance Use Screening 07/31/2025 07/31/2024 COVID-19 Vaccine ( season) 2025 Postponed from 05/25/2024 (Patient Refused) Depression Screening 07/31/2025 07/31/2024, 07/31/20 Dental X-Ray: Bitewings 08/06/2025 08/05/20 24, 03/11/2018, 12/07/2016 Tobacco Screening 11/21/2025 11/21/2024 Colorectal Cancer Screening 05/20/2026 FIT DNA/Cologuard 05/20/2026 05/20/2023 Dental X-Ray: Full Mouth 08/06/2027 08/05/2024, 11/22 Lipid Panel 12/11/2028 12/12/2023, 12/28/2022 DTaP/Tdap/Td Vaccines (2 - Td or Tdap) 07/31/2034 07/31/2024 Hepatitis C Screening Completed 04/18/2023, 023 Pneumococcal Vaccine: 50+ Years Completed 05/10/2023 Zoster Vaccines Completed 10/13/2023, 07/10/2023 Influenza Vaccine Completed 07/31/2024 HIB Vaccines Aged Out No longer eligi [...] patient's age to complete this topic Meningococcal Vaccine Aged Out No alisa cornelio eligible based on patient's age to complete this topic RSV under 20 months Aged Out No longe r eligible based on patient's age to complete this topic Rotavirus Vaccines Aged Out No longer eligible based on patient's age to complete this topic Procedures Procedure Name Priority Date/Time Associated Diagnosis Comments US ABDOMEN LIMITED Routine 01/05/2025 8: 51 AM EDT CASE PRESENTATION, DETAILED AND EXTENSIVE TREATMENT PLANNING Routine 11/21/2024 8:00 AM EST Dental caries Abfraction Dentin hypersensitivity 10 DF RESIN-BASED COMPOSITE - 2 SURF, ANTERIOR Routine 11/21/2024 8:00 AM EST Dental caries Dentin hypersensitivity 12 B(V) RESIN-BASED COMPOSITE - 1 SURF, POSTERIOR Routine 11/21/2024 8:00 AM EST Abfraction Dentin hypersensitivity 11 F(V) RESIN-BASED COMPOSITE - 1 SURF, ANTERIOR Routine 11/21/2024 8:00 AM EST Abfraction Dentin hypersensitivity PERIODIC ORAL EVALUATION - ESTABLISHED PATIENT Routine 09/01/2024 8:00 AM EST Tipped teeth Dental caries Partial edentulism, unspecified edentulism class PROPHYLAXIS - ADULT Routine 08/05/2024 8 :00 AM EST INTRAORAL - COMPLETE SERIES OF RADIOGRAPHIC IMAGES Routine 08/05/2024 8:00 AM EST LIPID PANEL, STANDARD Routine 12/12/2023 10:09 AM EDT LAB COLOGUARD?? COLON CANCER SCREEN Routine 05/20/2023 1:00 PM EDT Colon cancer screening HEPATITIS C ANTIBODY Routine 04/18/2023 10:55 AM EDT BI MAMMOGRAM SCREENING BILATERAL Routine 10/07/2018 2:58 PM EST from Last 3 Months or Most Recently Relevant to Health Maintenance Results * US Abdomen Limited (01/05/2025 8:51 AM EDT) Anatomical Region Laterality Modality Abdomen Ultrasound 01/05/2025 8:51 AM EDT Narrative 01/05/2025 8:52 AM EDT ? [facility] ?[address] ?[place] [address] ? Ultrasound Report ? Signed ? Patient: Evita Field ?MR#: M ?? [id number] ? : 1955 ?Acct:[id number] ? Age/Sex: 69 / F ?ADM Date: 01/05/25 ? Loc: HO.US ? Attending Dr: Stephanie Motta MD ? Ordering Physician: Stephanie Motta MD ?? Date of Service: 01/05/25 ?? Procedure(s): US abdomen limited ?? Accession Number(s): [id number] ? cc: Evelyn Lyon MD; Stephanie Motta MD ? CLINICAL HISTORY: K74.60 - Unspecified cirrhosis of liver ? US abdomen limited ? Comparison: 02/04/2024 ? Findings: ?? The visualized pancreas is normal. ?? The aorta and inferior vena cava are normal caliber. ? The appearance of the liver is consistent with the clinical diagnosis of ?? cirrhosis. ?? There is a 7 mm benign incidental right lobe cyst and a 6 mm calcified ?? hemangioma. ?? There is no intrahepatic bile duct dilatation. ?? The common duct is 2.0 mm in diameter. ?? The gallbladder is normal. There is no sonographic De Leon sign. ?? The main portal vein is antegrade. ? The right kidney is 11.1 cm in length. ?? No ascites. ? IMPRESSION: ?? Findings consistent with the clinical diagnosis of cirrhosis. No acute ?? findings. ? This document has been electronically signed by: Perfecto Frank MD on ?? 01/05/2025 08:51:27 ? Dictated By: ?Perfecto Frank MD ? Signed By: ?<Electronically signed by Perfecto Frank MD in OV> ?01/05/25 0852 ? DD/ 0851 ? TD/TT: 01/05/25 0851 ? Care Director Rn: ? Procedure Note Vadim Gandara - 01/05/2025 [facility] [address] [place] [address] Ultrasound Report Signed Patient: Evita Field TMR#: M [id number] : 4Acct:[id number] Age/Sex: 69 / FADM Date: 01/05/25 Loc: HO.US Attending Dr: Stephanie Motta MD Ordering Physician: Stephanie Motta MD Date of Service: 01/05/25 Procedure(s): US abdomen limited Accession Number(s): [id number] cc: Evelyn Lyon MD; Stephanie Motta MD CLINICAL HISTORY: K74.60 - Unspecified cirrhosis of liver US abdomen limited Comparison: 02/04/2024 Findings: The visualized pancreas is normal. The aorta and inferior vena cava are normal caliber. The appearance of the liver is consistent with the clinical diagnosis of cirrhosis. There is a 7 mm benign incidental right lobe cyst and a 6 mm calcified hemangioma. There is no intrahepatic bile duct dilatation. The common duct is 2.0 mm in diameter. The gallbladder is normal. There is no sonographic De Leon sign. The main portal vein is antegrade. The right kidney is 11.1 cm in length. No ascites. IMPRESSION: Findings consistent with the clinical diagnosis of cirrhosis. No acute findings. This document has been electronically signed by: Perfecto Frank MD on 01/05/2025 08:51:27 Dictated By: Perfecto Frank MD Signed By: <Electronically signed by Perfecto Frank MD in OV> 01/05/25 0852 DD/ 0851 TD/TT: 01/05/2551 Care Director Rn: us [facility] External Provider IMG US PROCEDURES Edited Result - Final * (ABNORMAL) Lipid Panel, Standard (12/12/2023 10:09 AM EDT) Triglycerides 110 <150 mg/dL [facility] Comment:Desirable Triglyceri de: less than 150 mg/dLBorderline High Triglyceride 150-199 mg/dLHigh Triglyceride: 200-499 mg/dLVery High Triglyceride: greater than or equal to 5OO mg/dL Cholesterol 201(H) <200 mg/dL [facility] Comment:Desirable Cholestero l: less than 200 mg/dLBorderline High Cholesterol: 200-239 mg/dLHigh Cholesterol: greater than 239 mg/dL LDL Cholesterol Calculated 123(H) <100 mg/dL [facility] Comment:Desirable LDL: less than 100 mg/dLNear Optimal/Above Optimal LDL: 110- 129 mg/dLBorderline High LDL: 130-159 mg/dLHigh LDL: 160-189 mg/dLVery High LDL: greater than or equal to 190 mg/dL HDL Cholesterol 56 >40 mg/dL [facility] Comment:Desirable HDL: great er than 40 mg/dL Note: This HDL assay may give artificially low results in patients with liver disease. 12/12/2023 10:0 9 AM EDT 12/12/2023 10:09 AM EDT us Generic External Data Provider LAB BLOOD ORDERAB LES Final Result [facility] [address] [place] [phone] * Cologuard?? colon cancer screening (05/20/2023 1:00 PM EDT) Cologuard Result Negative Negative 06/06/20 1:46 AM EDT [employer] (CLIA #:[id number]) Comment: NEGATIVE TEST RESULT. A negative Cologuard result indicates a low likelihood that a colorectal cancer (CRC) or advanced adenoma (adenomatous polyps with more advanced pre-malignant features) ??is present. The chance that a person with a negative Cologuard test has a colorectal cancer is less than 1 in 1500 (negative predictive value >99.9%) or has an ??advanced adenoma is less than ??5.3% (negative predictive value 94.7%). These data are based on a prospective cross-sectional study of 10,000 individuals at average risk for colorectal cancer who were screened with both Cologuard and colonoscopy. (Phil Hendrix al, N Engl J Med 2014;370(14):1286- 1297) The normal value (reference range) for this assay is negative. COLOGUARD RE-SCREENING RECOMMENDATION: Periodic colorectal cancer screening is an important part of preventive healthcare for asymptomatic individuals at average risk for colorectal cancer. ??Following a negative Cologuard result, the [place] Cancer Society and U.S. Multi-Society Task Force screening guidelines recommend a Cologuard re-screening interval of 3 years. References: [employer] Cancer Society Guideline for Colorectal Cancer Screening: https://www.cancer.org/cancer/uinbw-ceyfpm-kxavbp/riietxtpf-mgqnklxzg-pqoganw/ac s-rec ommendations.html.; Kelvin DK, Jamila HERNANDES, Zunilda ReyesK, Colorectal Cancer Screening: Recommendations for Physicians and Patients from the U.S. Multi-Society Task Force on Colorectal Cancer Screening , Am J Gastroenterology 2017; 112:6789-2194. TEST DESCRIPTION: Composite algorithmic analysis of stool DNA-biomarkers with hemoglobin immunoassay. ?? Quantitative values of individual biomarkers are not reportable and are not associated with individual biomarker result reference ranges. Cologuard is intended for colorectal cancer screening of adults of either sex, 45 years or older, who are at average-risk for colorectal cancer (CRC). Cologuard has been approved for use by the U.S. FDA. The performance of Cologuard was established in a cross sectional study of average-risk adults aged 50-84. Cologuard performance in patients ages 45 to 49 years was estimated by sub-group analysis of near-age groups. Colonoscopies performed for a positive result may find as the most clinically significant lesion: colorectal cancer [4.0%], advanced adenoma (including sessile serrated polyps greater than or equal to 1cm diameter) [20%] or non- advanced adenoma [31%]; or no colorectal neoplasia [45%]. These estimates are derived from a prospective cross-sectional screening study of 10,000 individuals at average risk for colorectal cancer who were screened with both Cologuard and colonoscopy. (Phil Ram et al, N Engl J Med 2014;370(14):2822-8370.) Cologuard may produce a false negative or false positive result (no colorectal cancer or precancerous polyp present at colonoscopy follow up). A negative Cologuard test result does not guarantee the absence of CRC or advanced adenoma (pre-cancer). The current Cologuard screening interval is every 3 years. ([employer] Cancer Society and U.S. Multi-Society Task Force). Cologuard performance data in a 10,000 patient pivotal study using colonoscopy as the reference method can be accessed at the following location: www.[employer].51 Give/results. Additional description of the Cologuard test process, warnings and precautions can be found at www.cologuard.com. Stool specimen (specimen) 05/20/2023 1:00 PM EDT 05/22/2023 9:35 PM EDT Evelyn Lyon MD LAB MOLECULAR DIAGNOSTICS ORD ERABLES Final Result [employer] (CLIA #:[id number]) [address] [place] [place] [address], * Hepatitis C Ab (04/18/2023 10:55 AM EDT) Hepatitis C Antibody Nonreactive Nonreactive [facility] Comment:Antibodies to HCV no t detected; does not exclude early acuteHCV infection. 04/18/2023 10:5 5 AM EDT 04/18/2023 10:55 AM EDT Generic External Data Provider LAB BLOOD ORDERAB LES Final Result Performing Organization Address [facility]/ZIP Co de Phone Number [facility] [address] [place] [phone] * DIGITAL BILATERAL SCREEN 1 (10/07/2018 2:58 PM EST) Anatomical Region Laterality Modality Breast Bilateral Mammography 10/07/2018 2:58 PM EST Narrative 10/07/2018 3:02 PM EST Refer to the Notes tab for result details [facility] Procedure: DIGITAL BILATERAL SCREEN 1 Procedure Note Provider, Kristen, - 12/16/2022 Refer to the Notes tab for result details [facility] Procedure: DIGITAL BILATERAL SCREEN 1 Historical Provider MD LAUGNAS BI PROCEDURES Final R esult from Last 3 Months or Most Recently Relevant to Health Maintenance Insurance [place] [id number] [facility] STANDARD DENTAL-[facility] MEDICAID STAND ADULT Care Teams Manager Helpdesk Relationship Specialty Start Date End Date Evelyn Lyon MD [address] [place] [phone] PCP - General Family Medicine 12/04/22 [facility]. [address] [place] [phone] 09/24/23 Stephanie Motta MD Consulting Physician Gastroenterology 07/31/24
--- NOTE | 2025-02-10 07:51 | AM.OFFVISNUR ---
Intake Visit Reasons: Hep B #3 Allergies No Known Allergies Allergy (Verified 07/14/24 11:47) Immunizations Engerix-B (PF) 20 mcg/mL intramuscular suspension Performing Provider: Stephanie Motta MD Performing Location: [facility] Administered by: Pebbles Maza RN on 02/10/25 07:51 Dose Route Admin Location Dispensed Lot Number Expiration Date NDC Debit Agent 1 mL IM Left Deltoid 1 mL [id number] 04/21/27 12212-307-89 [employer] VIS Given Date VIS Provided VIS Publication Date 02/10/25 Single Vaccine 23 Eligibility Eligibility Date Funding Source Not [facility] Eligible 02/10/25 Private Assessment & Plan Assessment & Plan Orders: Orders Hepatitis B Adult Immunization Today Z23 - Encounter for immunization Medications: New Engerix-B (PF) (hepatitis B virus vacc.rec(PF)) 1 mL IM ONCE 1 mL 0RF NS Z23 - Encounter for immunization Coding Level of Care Code Established Pt Est Pt Level 1 (93532) Patient Type Established Medical Decision Making Straight Forward
== END 2025-02-10 07:52 | disposition home or self-care (01) ==
LOC: HO.HGI 07:29
PROVIDERS: PCP Family Medicine; Visit Provider Internal Medicine
DX: Z23 Encounter for immunization (principal)

== ENCOUNTER → 2025-02-10 07:29 | Outpatient (BNVA) | payer MEDICARE, MEDICAID, SELFPAY | PROVIDERS: PCP Family Medicine; Visit Provider Internal Medicine | DX: Z23 Encounter for immunization (principal) | CPT/HCPCS: 90471; 90746; 99211 ==